=== PATIENT | female | born 1945 | race Caucasian/White ===

== ENCOUNTER 2020-04-02 07:56 | Outpatient (REF) | payer MEDICARE, SELFPAY ==
--- NOTE | 2020-04-02 08:01 | MM_ITS ---
EXAMINATION: MM SCREENING DIGITAL BREAST TOMOSYNTHESIS, BILATERAL CLINICAL INFORMATION: Screening. Asymptomatic. The lifetime risk of breast cancer based on the Tyrer-Cuzick Model is 3%. COMPARISON: Mammography: 03/28/2019, 03/15/2018, 02/21/2017, 01/19/2016, 12/30/2014 TECHNIQUE: Digital breast tomosynthesis is performed in both the craniocaudal and mediolateral oblique views along with computer-aided detection (CAD). Synthesized 2D images are generated from the tomosynthesis. Additional left MLO view is provided. FINDINGS: There are scattered areas of fibroglandular density (ACR BI-RADS breast composition Category b). Parenchymal pattern is similar to prior studies. There is no interval mass or architectural abnormality or developing density. Parenchymal asymmetry central left breast in MLO view is similar to prior studies. There are no abnormal calcifications. The axilla and skin contours are unremarkable. MM/MM tomosynthesis screening BI IMPRESSION: No significant changes from prior studies. ASSESSMENT: BI-RADS 2: Benign RECOMMENDATION: Routine annual mammography screening. This patient's information was entered into a reminder system with a target due date for their next mammogram.
== END 2020-04-02 07:57 | disposition home or self-care (01) ==
LOC: HO.MAMMO 07:56
PROVIDERS: PCP Internal Medicine; Visit Provider Internal Medicine
DX: Z12.31 Encounter for screening mammogram for malignant neoplasm of breast (principal)
CPT/HCPCS: 77063; 77067

== ENCOUNTER 2020-04-12 10:24 | Outpatient (REF) | payer MEDICARE, SELFPAY ==
[2020-04-12 13:42] LABS: MANUAL DIFF FLAG NO
[2020-04-12 13:48] LABS: Basophils Percent Auto 0.8 % (0-2); Eosinophils Absolute Auto 0.1 X10*3/uL (0.0-0.4); Eosinophils Percent Auto 2.3 % (0-4); Hematocrit 40.9 % (37-47); Hemoglobin 13.9 g/dl (12.0-16.0); Imm Gran Abs Auto 0.01 X10*3/uL (0.00-0.03); Imm Gran Pct Auto 0.2 % (0.0-0.4); Lymphocytes Absolute Auto 1.3 X10*3/uL (1.2-4.9); Lymphocytes Percent Auto 25.2 % (20-40); Mean Corpuscular Hemoglobin 31.8 pg (27.0-33.0); Mean Corpuscular Volume 93.6 fL (80-98); Mean Platelet Volume 10.2 fL (9.4-12.3); Monocytes Absolute Auto 0.5 X10*3/uL (0.1-1.2); Monocytes Percent Auto 10.1 % (2-11); Neutrophils Absolute Auto 3.2 X10*3/uL (2.0-8.3); Neutrophils Percent Auto 61.4 % (45-73); Platelet Count 266 X10*3/uL (160-400); Red Blood Count 4.37 X10*6/uL (4.20-5.50); White Blood Count 5.2 X10*3/uL (4.8-10.8)
[2020-04-12 14:53] LABS: Alanine Aminotransferase 18 U/L (0-31); Albumin Level 4.4 g/dL (3.5-5.0); Alkaline Phosphatase 61 U/L (39-117); Anion Gap 13 (12-20); Aspartate Amino Transferase 17 U/L (5-31); Bilirubin Total 0.5 mg/dL (0.0-1.0); Blood Urea Nitrogen 16 mg/dL (9-16); Calcium 10.1 mg/dL (8.4-10.2); Carbon Dioxide 28 mmol/L (22-29); Chloride 106 mmol/L (96-108); Estimated Glomerular Filt Rate 53; Glucose Random 90 mg/dL (60-115); Potassium 4.9 mmol/l (3.3-5.1); Sodium 142 mmol/L (135-145); Total Protein 6.9 g/dL (6.5-8.0)
== END 2020-04-12 10:25 | disposition home or self-care (01) ==
LOC: HO.10HDL 10:24
PROVIDERS: Visit Provider Internal Medicine
DX: I12.9 Hypertensive chronic kidney disease with stage 1 through stage 4 chronic kidney disease, or unspecified chronic kidney disease (principal); N18.9 Chronic kidney disease, unspecified; E78.00 Pure hypercholesterolemia, unspecified; K21.9 Gastro-esophageal reflux disease without esophagitis
CPT/HCPCS: 36415; 80053; 85025

== ENCOUNTER 2020-06-20 10:16 | Emergency (ER) | payer MEDICARE, SELFPAY ==
--- NOTE | ~2020-06-20 | CT_ITS ---
CT head/brain wo con CLINICAL INFORMATION: Fall COMPARISON: No prior CT scan available for comparison. TECHNIQUE: Department standard protocol. This CT examination was performed using dose optimization techniques as appropriate, variously including the following: *Automated exposure control *Adjustment of mA and/or kV according to patient size (this includes techniques or standardized protocols for targeted exams where dose is matched to indication/reason for exam; i.e. extremities or head) *Use of iterative reconstruction technique DLP: 598 mGy-cm FINDINGS: CEREBRAL HEMISPHERES: There is no evidence of intra-axial or extra-axial mass, hemorrhage or acute infarct. BRAIN PARENCHYMA: Normal vigil-white matter differentiation. SUBDURAL SPACE: No bleed. BASAL GANGLIA AND PINEAL GLAND: Unremarkable VENTRICLES: Symmetric and normal in size. CEREBELLUM AND BRAINSTEM: No space-occupying mass, hemorrhage or acute infarct. CEREBELLOPONTINE ANGLES: No lesion found. ORBITS: No intraorbital mass. VESSELS: Unremarkable SKULL BASE: Unremarkable INCLUDED SINUSES AT SKULL BASE: Clear SKULL AND SKIN: No fracture or bone lesion found. CT/CT head/brain wo con IMPRESSION: No CT evidence of intracranial space-occupying mass, bleed or infarct.
[2020-06-20 10:18] VITALS: BP 181/100; PULSE 82; RESP 16; TEMP 36.3; O2SAT 98; BMI 27.4
--- NOTE | 2020-06-20 10:24 | ED_ITS ---
HPI - Fall General Chief Complaint: Fall Stated Complaint: FALL HEAD INJ LACERATION Time Seen by Provider: 06/20/20 10:24 Source: patient Mode of arrival: ambulatory Limitations: no limitations History of Present Illness HPI Narrative: fell from stool putting up shower curtain hit head on door and scraped R anterior leg no LOC no AC therapy MD complaint: fall Onset (ago): minute(s) (just prior to arrival ) Fall from: standing (on stool) Fall witnessed: no Place fall occurred: home Loss of consciousness: none Prolonged down time: no Symptoms prior to fall: none Context: tripped/slipped Location of injury: head Location of injury - extremities: right: lower leg Severity: mild Quality: aching Associated symptoms (after fall): headache Related Data Allergies Allergy/AdvReac Type Severity Reaction Status Date / Time No Known Allergies Allergy Unverified 01/29/20 15:19 [No Known Allergies*] Review of Systems Review of Systems: Constitutional : No Fever, No Chills ENT/Mouth : No Ear Pain, No Hoarseness, No sore throat Eyes: No Eye Pain, No Swelling, No Redness, No Foreign Body Cardiovascular : No Chest Pain, No SOB Respiratory : No Cough, No Dyspnea Gastrointestinal : No Nausea, No Vomiting, No Diarrhea, No abdominal Pain Genitourinary : No Dysuria, No Hematuria Musculoskeletal : no joint pain, No Myalgias, No Joint Swelling Skin : pos Skin lacerations, No rash Neuro : No Weakness, No Numbness, No Loss of Consciousness, No Dizziness, pos Headache Psych : No Anxiety/Panic, No Depression Heme/Lymph: no easy bruising, no Lymphadenopathy Endocrine : No Polyuria, No Polydipsia All other systems reviewed and are negative FORMERLY [facility], [facility] Past Medical History Attestation statement: The following information was validated with the patient. Medical History No known health problems Social History Social History (Updated 06/20/20 @ 10:35 by Justina Garza DO) Smoking Status: Never smoker Advance Directives: No Advance Directives Information Provided: No Physical Exam Vital Signs: Vital Signs: Last Vital Signs Temp 97.3 F 06/20/20 10:18 Pulse 82 06/20/20 10:18 Resp 16 06/20/20 10:18 BP 181/100 H 06/20/20 10:18 Pulse Ox 98 06/20/20 10:18 Body Mass Index 27.4 Appearance: Alert. Oriented X3. No acute distress. Eyes: Pupils equal, round and reactive to light. ENT: Pharynx normal. Contusion to L forehead moderate Neck: Normal inspection. Neck supple. Full ROM no symptoms or pain CVS: Normal heart rate and rhythm. Pulses normal. Respiratory: No respiratory distress. Breath sounds normal. Abdomen: Soft and nontender. Skin: Skin warm and dry. Normal skin color. Normal skin turgor. Extremities: No lower extremity edema. No calf ttp Abrasion superficial R anterior acosta clean small avulsion 1cm Neuro: Oriented X 3. No motor deficit. No sensory deficit. Procedures Laceration Laceration 1: Site: lower extremity Side (If applicable): right Size (cm): 1 Description: flap and clean Depth: simple, single layer Pre-repair: wound explored Skin layer closed with: other (dermabond) MDM - Fall MDM Narrative Medical decision making narrative: 74 yo female no AC therapy slip and fall isolated head and R anterior acosta abrasion no LOC, GCS 15 c/o headache CT head for trauma ordered, RLE full ROM no limping - will dermabond area Discharge Plan Discharge Clinical Impression: Avulsion of skin Head injury Qualifiers: Encounter type: initial encounter Qualified Code(s): S09.90XA - Unspecified injury of head, initial encounter Contusion Qualifiers: Encounter type: initial encounter Contusion area: head Contusion of head detail: scalp Qualified Code(s): S00.03XA - Contusion of scalp, initial encounter Patient Disposition: Home, Self-Care Instructions: Head Injury (ED), Contusion in Adults (ED), Skin Avulsion (ED) Additional Instructions: return to ED for any worsening symptoms or concerns keep wound covered x 3 days it is okay to shower it will fall off in 5 to 7 days on its own
[2020-06-20 12:08] VITALS: BP 176/75; PULSE 88; RESP 16; TEMP 36.9; O2SAT 98
== END 2020-06-20 12:17 | disposition home or self-care (01) ==
PROVIDERS: Emergency Provider Emergency Medicine; PCP Internal Medicine
DX: S09.90XA Unspecified injury of head, initial encounter (principal); S00.03XA Contusion of scalp, initial encounter; S80.811A Abrasion, right lower leg, initial encounter; W17.89XA Other fall from one level to another, initial encounter; Y93.E9 Activity, other interior property and clothing maintenance; Y92.019 Unspecified place in single-family (private) house as the place of occurrence of the external cause; Y99.9 Unspecified external cause status
CPT/HCPCS: 12001; 70450; 99283; 99284

== ENCOUNTER 2020-07-12 07:41 | Outpatient (REF) | payer MEDICARE, SELFPAY ==
[2020-07-12 11:47] LABS: Anion Gap 14 (12-20); Blood Urea Nitrogen 18 mg/dL (9-16); Carbon Dioxide 27 mmol/L (22-29); Chloride 106 mmol/L (96-108); Estimated Glomerular Filt Rate 58; Glucose Random 88 mg/dL (60-115); Potassium 4.5 mmol/L (3.3-5.1); Sodium 142 mmol/L (135-145)
== END 2020-07-12 07:42 | disposition home or self-care (01) ==
LOC: HO.10HDL 07:41
PROVIDERS: Visit Provider Internal Medicine
DX: I10 Essential (primary) hypertension (principal)
CPT/HCPCS: 36415; 80048

== ENCOUNTER 2020-10-07 06:11 | Outpatient (REF) | payer MEDICARE, SELFPAY ==
[2020-10-07 07:02] LABS: MANUAL DIFF FLAG NO
[2020-10-07 07:04] LABS: Basophils Percent Auto 0.6 % (0-2); Eosinophils Absolute Auto 0.2 X10*3/uL (0.0-0.4); Eosinophils Percent Auto 2.8 % (0-4); Hematocrit 41.2 % (37-47); Hemoglobin 13.9 g/dl (12.0-16.0); Imm Gran Abs Auto 0.01 X10*3/uL (0.00-0.03); Imm Gran Pct Auto 0.2 % (0.0-0.4); Lymphocytes Absolute Auto 1.6 X10*3/uL (1.2-4.9); Lymphocytes Percent Auto 28.8 % (20-40); Mean Corpuscular HGB Conc 33.7 g/dl (31.0-35.0); Mean Corpuscular Hemoglobin 31.2 pg (27.0-33.0); Mean Corpuscular Volume 92.6 fL (80-98); Mean Platelet Volume 9.8 fL (9.4-12.3); Monocytes Absolute Auto 0.5 X10*3/uL (0.1-1.2); Monocytes Percent Auto 9.6 % (2-11); Neutrophils Absolute Auto 3.1 X10*3/uL (2.0-8.3); Platelet Count 221 X10*3/uL (160-400); Red Blood Count 4.45 X10*6/uL (4.20-5.50); Red Cell Distribution Width 11.9 % (11.0-16.0); White Blood Count 5.4 X10*3/uL (4.8-10.8)
[2020-10-07 07:47] LABS: Alanine Aminotransferase 17 U/L (0-31); Albumin Level 4.3 g/dL (3.5-5.0); Alkaline Phosphatase 62 U/L (39-117); Anion Gap 13 (12-20); Aspartate Amino Transferase 14 U/L (5-31); Bilirubin Total 0.7 mg/dL (0.0-1.0); Blood Urea Nitrogen 15 mg/dL (9-16); Calcium 9.9 mg/dL (8.4-10.2); Carbon Dioxide 28 mmol/L (22-29); Chloride 106 mmol/L (96-108); Cholesterol 161 mg/dL; Estimated Glomerular Filt Rate 54; Glucose Fasting 91 mg/dL (60-99); HDL Cholesterol 53 mg/dL; LDL Cholesterol Calculated 86 mg/dl; Potassium 4.6 mmol/L (3.3-5.1); Sodium 142 mmol/L (135-145); Total Protein 6.6 g/dL (6.5-8.0); Triglycerides 112 mg/dL
[2020-10-07 07:59] LABS: Vitamin D 25-OH Total 41.6 ng/mL (>30)
== END 2020-10-07 06:12 | disposition home or self-care (01) ==
LOC: HO.LAB 06:11
PROVIDERS: PCP Internal Medicine; Visit Provider Internal Medicine
DX: E78.00 Pure hypercholesterolemia, unspecified (principal); K21.9 Gastro-esophageal reflux disease without esophagitis; E55.9 Vitamin D deficiency, unspecified
CPT/HCPCS: 36415; 80053; 80061; 82306; 85025

== ENCOUNTER 2021-01-12 10:00 | Outpatient (REF) | payer MEDICARE, SELFPAY ==
--- NOTE | ~2021-01-12 | US_ITS ---
EXAMINATION: US RETROPERITONEAL LIMITED (RENAL ONLY) CLINICAL INFORMATION: Complex renal cyst. COMPARISON: Ultrasound renals only 11/13/2019 and 11/11/2018. TECHNIQUE: Real-time imaging of the kidneys. FINDINGS: RIGHT KIDNEY: 9.7 x 4.3 x 5.0 cm (SAG x AP x TRV). The kidney is normal in size, contour, and echogenicity. Renal cortical thickness is normal. There is a 3 mm stone in the upper pole. No focal parenchymal lesions or hydronephrosis. LEFT KIDNEY: 11.1 x 3.6 x 4.3 cm (SAG x AP x TRV). The kidney is normal in size, contour, and echogenicity. Renal cortical thickness is normal. There is a 2.8 x 2 x 2.5 cm slightly complex cyst with single septation in the upper pole. This is slightly increased in size from 2.3 x 1.7 x 2.1 cm on current exam. There is a 1.4 x 1.4 x 1.2 cm slightly complex cyst with septation in the upper pole. This is slightly increased in size from 1.1 x 0.8 x 1 cm on previous exam. There is a 3 mm stone in the upper pole. No renal hydronephrosis. US/US renal BI IMPRESSION: Probable small bilateral renal stones. 2 left minimally complex left renal cysts. These are increased in size from previous exam.
== END 2021-01-12 10:01 | disposition home or self-care (01) ==
LOC: HO.US 10:00
PROVIDERS: PCP Internal Medicine; Visit Provider Urology
DX: N28.1 Cyst of kidney, acquired (principal)
CPT/HCPCS: 76775

== ENCOUNTER 2021-01-13 06:35 | Outpatient (REF) | payer MEDICARE, SELFPAY ==
[2021-01-13 07:15] LABS: Anion Gap 11 (12-20); Blood Urea Nitrogen 17 mg/dL (9-16); Calcium 10.3 mg/dL (8.4-10.2); Carbon Dioxide 28 mmol/L (22-29); Chloride 107 mmol/L (96-108); Estimated Glomerular Filt Rate 54; Glucose Random 91 mg/dL (60-115); Potassium 4.3 mmol/L (3.3-5.1); Sodium 142 mmol/L (135-145)
== END 2021-01-13 06:36 | disposition home or self-care (01) ==
LOC: HO.LAB 06:35
PROVIDERS: PCP Internal Medicine; Visit Provider Internal Medicine
DX: I12.9 Hypertensive chronic kidney disease with stage 1 through stage 4 chronic kidney disease, or unspecified chronic kidney disease (principal); N18.9 Chronic kidney disease, unspecified
CPT/HCPCS: 36415; 80048

== ENCOUNTER → 2021-01-27 08:43 | Outpatient (BNVA) | payer MEDICARE, SELFPAY | PROVIDERS: PCP Internal Medicine; Visit Provider Urology | CPT/HCPCS: Q3014 ==

== ENCOUNTER 2021-04-08 07:52 | Outpatient (REF) | payer MEDICARE, SELFPAY ==
--- NOTE | ~2021-04-08 | MM_ITS ---
EXAMINATION: MM SCREENING DIGITAL BREAST TOMOSYNTHESIS, BILATERAL CLINICAL INFORMATION: Screening. Asymptomatic. The lifetime risk of breast cancer based on the Tyrer-Cuzick Model is 2%. COMPARISON: Mammography: 04/02/2020, 03/28/2019, 03/15/2018 TECHNIQUE: Digital breast tomosynthesis is performed in both the craniocaudal and mediolateral oblique views along with computer-aided detection (CAD). Synthesized 2D images are generated from the tomosynthesis. FINDINGS: There are scattered areas of fibroglandular density (ACR BI-RADS breast composition Category b). There are no significant masses, abnormal calcifications, or other abnormalities. Parenchymal pattern is similar to prior studies. No developing density. No significant changes. MM/MM tomosynthesis screening BI IMPRESSION: No mammographic evidence of malignancy. ASSESSMENT: BI-RADS 2: Benign RECOMMENDATION: Routine annual mammography screening. This patient's information was entered into a reminder system with a target due date for their next mammogram.
== END 2021-04-08 07:53 | disposition home or self-care (01) ==
LOC: HO.MAMMO 07:52
PROVIDERS: Visit Provider Internal Medicine
DX: Z12.31 Encounter for screening mammogram for malignant neoplasm of breast (principal)
CPT/HCPCS: 77063; 77067

== ENCOUNTER 2021-06-07 08:26 | Outpatient (REF) | payer MEDICARE, SELFPAY ==
--- NOTE | ~2021-06-07 | MM_ITS ---
EXAMINATION: BONE DENSITOMETRY CLINICAL INDICATION: Menopausal. COMPARISON: Previous BD dated 04/10/2017 and baseline BD dated 07/16/2007. TECHNIQUE: Using a [employer] DXA System (software version: 13.1) manufactured by [employer], dual-energy x-ray absorptiometry was performed of the lumbar spine and left hip. The images are of good technical quality. Summary results are attached. FINDINGS: AP SPINE L1-L4: Current: BMD 1.155 g/cm2, Z-score 1.4, T-score -0.2, normal, 1.8% decrease from previous, 10.6% increase from baseline (<5% change is not significant). Prior: BMD 1.176 g/cm2. Baseline: BMD 1.044 g/cm2. LEFT FEMUR, NECK: Current: BMD 0.811 g/cm2, Z-score 0.2, T-score -1.6, osteopenia. Prior: BMD 0.863 g/cm2. Baseline: BMD 0.807 g/cm2. LEFT FEMUR, TOTAL: Current: BMD 0.820 g/cm2, Z-score 0.1, T-score -1.5, osteopenia, 4.7% decrease from previous, 5.6% decrease from baseline (<5% change is not significant). Prior: BMD 0.860 g/cm2. Baseline: BMD 0.869 g/cm2. IDENTIFIED RISK FACTORS: Early menopause, secondary osteoporosis. HISTORY OF FRACTURE: None listed. MEDICATIONS: Calcium, vitamin D. MM/XR DEXA axial skeleton IMPRESSION: 1. DIAGNOSIS: Osteopenia based on the lowest T-score value of -1.6 in the femoral neck applying World Health Organization criteria. 2. 10-YEAR FRACTURE RISK PREDICTION, FRAX: Major osteoporotic fracture (clinical spine, forearm, hip or shoulder) 11.5%. Hip fracture 2.4%. 3. Treatment Recommendations: NOF guidelines recommend consideration for treatment in postmenopausal women and men age 50 and older presenting with the following: -A hip or vertebral (clinical or morphometric) fracture. -T-score less than or equal to -2.5 at the femoral neck or spine after appropriate evaluation to exclude secondary causes. -Low bone mass at the hip or spine and a 10-year fracture probability by FRAX of greater than or equal to 3% for hip fracture or greater than or equal to 20% for major osteoporotic fracture based on the [place] adapted WHO algorithm. 4. Other Recommendations: All treatment decisions require clinical judgment and consideration of individual patient factors, including patient preferences, comorbidities, previous drug use, risk factors not captured in the FRAX model (e.g. frailty, falls, vitamin D deficiency, increased bone turnover, interval significant decline in bone density) and possible under or overestimation of fracture risk by FRAX. Additional medical evaluation for secondary cause of low bone mineral density may be appropriate. FUTURE SCAN RECOMMENDATION: People with diagnosed cases of osteoporosis or at high risk for fracture should have regular bone mineral density tests. For patients eligible for Medicare, routine testing is allowed once every 2 years. The testing frequency can be increased to one year for patients who have rapidly progressing disease, those who are receiving or discontinuing medical therapy to restore bone mass, or have additional risk factors.
== END 2021-06-07 08:27 | disposition home or self-care (01) ==
LOC: HO.MAMMO 08:26
PROVIDERS: PCP Internal Medicine; Visit Provider Internal Medicine
DX: Z13.820 Encounter for screening for osteoporosis (principal); Z78.0 Asymptomatic menopausal state; M85.80 Other specified disorders of bone density and structure, unspecified site; Z79.899 Other long term (current) drug therapy
CPT/HCPCS: 77080

== ENCOUNTER 2021-11-24 06:11 | Outpatient (REF) | payer MEDICARE, SELFPAY ==
[2021-11-24 06:16] LABS: MANUAL DIFF FLAG NO
[2021-11-24 08:26] LABS: Basophils Percent Auto 0.6 % (0-2); Eosinophils Absolute Auto 0.2 X10*3/uL (0.0-0.4); Imm Gran Abs Auto 0.02 X10*3/uL (0.00-0.03); Imm Gran Pct Auto 0.3 % (0.0-0.4); Mean Corpuscular HGB Conc 33.3 g/dl (31.0-35.0); Mean Corpuscular Volume 93.1 fL (80.0-98.0); Mean Platelet Volume 10.2 fL (9.4-12.3); Monocytes Absolute Auto 0.6 X10*3/uL (0.1-1.2); Monocytes Percent Auto 8.7 % (2-11); Neutrophils Absolute Auto 3.5 x10*3/uL (2.0-8.3); Neutrophils Percent Auto 56.4 % (45-73); Platelet Count 245 X10*3/uL (160-400); Red Blood Count 4.51 X10*6/uL (4.20-5.50); Red Cell Distribution Width 12.4 % (11.0-16.0); White Blood Count 6.3 X10*3/uL (4.8-10.8)
[2021-11-24 08:58] LABS: Alanine Aminotransferase 19 U/L (0-31); Albumin Level 4.5 g/dL (3.5-5.0); Alkaline Phosphatase 67 U/L (39-117); Anion Gap 14 (12-20); Aspartate Amino Transferase 14 U/L (5-31); Bilirubin Total 0.8 mg/dL (0.0-1.0); Blood Urea Nitrogen 16 mg/dL (9-16); Carbon Dioxide 26 mmol/L (22-29); Chloride 107 mmol/L (96-108); Cholesterol 177 mg/dL; Estimated Glomerular Filt Rate 51; Glucose Fasting 90 mg/dL (60-99); HDL Cholesterol 53 mg/dL; LDL Cholesterol Calculated 103 mg/dl; Potassium 4.6 mmol/L (3.3-5.1); Sodium 142 mmol/L (135-145); Triglycerides 106 mg/dL
[2021-11-24 09:05] LABS: Vitamin D 25-OH Total 53.3 ng/mL (>30)
[2021-11-24 09:20] LABS: Appearance Urine CLEAR; Color Urine YELLOW; Glucose Urine UA NEG (NEG); Leukocyte Esterase Urine TRACE (NEG); Nitrite Urine NEG (NEG); Specific Gravity - Urine 1.015 (1.005-1.025); Urine Blood NEG (NEG); Urine Ketones NEG (NEG); Urine Protein NEG (NEG-TRACE)
[2021-11-24 09:30] LABS: Squamous Epithelial Cell Urine 1+ /LPF
[2021-11-24 09:31] LABS: RBC Urine 0-2 /HPF (0); Renal Epithelial Cells Urine TRACE /LPF; WBC Urine 0-2 /HPF (0-4)
== END 2021-11-24 06:12 | disposition home or self-care (01) ==
LOC: HO.LAB 06:11
PROVIDERS: PCP Internal Medicine; Visit Provider Internal Medicine
DX: I12.9 Hypertensive chronic kidney disease with stage 1 through stage 4 chronic kidney disease, or unspecified chronic kidney disease (principal); N18.30 Chronic kidney disease, stage 3 unspecified; J44.9 Chronic obstructive pulmonary disease, unspecified; K21.9 Gastro-esophageal reflux disease without esophagitis; M85.89 Other specified disorders of bone density and structure, multiple sites; Z87.891 Personal history of nicotine dependence
CPT/HCPCS: 36415; 80053; 80061; 81001; 81003; 82306; 85025

== ENCOUNTER 2022-01-30 08:31 | Outpatient (REF) | payer MEDICARE, SELFPAY ==
--- NOTE | ~2022-01-30 | US_ITS ---
EXAMINATION: US RETROPERITONEAL LIMITED (RENAL ONLY) CLINICAL INFORMATION: Calculus of kidney. COMPARISON: Ultrasound retroperitoneal limited (renal only) 01/12/2021 and 11/13/2019. TECHNIQUE: Real-time imaging of the kidneys. FINDINGS: RIGHT KIDNEY: 9.3 x 5.1 x 4.9 cm (SAG x AP x TRV). The kidney is normal in size, contour, and echogenicity. Renal cortical thickness is normal. No renal calculi or hydronephrosis. There is anechoic cyst upper pole measuring 1.1 x 0.9 x 0.8 cm. It is new. Previously seen upper pole echogenic calculi is not visualized at this time. LEFT KIDNEY: 8.9 x 4.4 x 4.2 cm (SAG x AP x TRV). The kidney is normal in size, contour, and echogenicity. Renal cortical thickness is normal. No renal calculi or hydronephrosis. There is anechoic cyst in the upper/pole medially measuring 2.7 x 1.9 x 2.1 cm and 2 anechoic cysts in the upper pole laterally measuring 1.5 x 1.1 x 1.4 cm and 1.3 x 1.3 x 1.7 cm. US/US renal BI IMPRESSION: Bilateral renal cysts. No echogenic stones or hydronephrosis seen.. Echogenic stones were seen bilaterally on the previous exam 01/12/2021
== END 2022-01-30 08:32 | disposition home or self-care (01) ==
LOC: HO.US 08:31
PROVIDERS: Visit Provider Urology
DX: N20.0 Calculus of kidney (principal); N28.1 Cyst of kidney, acquired
CPT/HCPCS: 76775

== ENCOUNTER 2022-02-14 07:26 | Outpatient (REF) | payer MEDICARE, SELFPAY ==
[2022-02-14 11:41] LABS: Anion Gap 17 (12-20); Blood Urea Nitrogen 16 mg/dL (9-16); Carbon Dioxide 24 mmol/L (22-29); Chloride 107 mmol/L (96-108); Estimated Glomerular Filt Rate 45; Glucose Random 121 mg/dL (60-115); Potassium 4.4 mmol/L (3.3-5.1); Sodium 144 mmol/L (135-145)
== END 2022-02-14 07:27 | disposition home or self-care (01) ==
LOC: HO.LAB 07:26
PROVIDERS: PCP Internal Medicine; Visit Provider Internal Medicine
DX: I12.9 Hypertensive chronic kidney disease with stage 1 through stage 4 chronic kidney disease, or unspecified chronic kidney disease (principal); N18.9 Chronic kidney disease, unspecified
CPT/HCPCS: 36415; 80048

== ENCOUNTER → 2022-03-23 13:13 | Outpatient (BNVA) | payer MEDICARE, SELFPAY | PROVIDERS: PCP Internal Medicine; Visit Provider Urology | DX: N28.1 Cyst of kidney, acquired (principal) | CPT/HCPCS: 99212 ==

== ENCOUNTER 2022-04-10 07:55 | Outpatient (REF) | payer MEDICARE, SELFPAY ==
--- NOTE | ~2022-04-10 | MM_ITS ---
EXAMINATION: MM SCREENING DIGITAL BREAST TOMOSYNTHESIS, BILATERAL CLINICAL INFORMATION: Screening. Asymptomatic. The lifetime risk of breast cancer based on the Tyrer-Cuzick Model is 1%. COMPARISON: Mammography: 04/08/2021, 04/02/2020, 03/28/2019 TECHNIQUE: Digital breast tomosynthesis is performed in both the craniocaudal and mediolateral oblique views along with computer-aided detection (CAD). Synthesized 2D images are generated from the tomosynthesis. FINDINGS: There are scattered areas of fibroglandular density (ACR BI-RADS breast composition Category b). There are no significant masses, abnormal calcifications, or other abnormalities. Parenchymal pattern is similar to prior studies. There is no developing density or architectural abnormality. The axilla and skin contours are unremarkable. No significant changes. MM/MM tomosynthesis screening BI IMPRESSION: No mammographic evidence of malignancy. ASSESSMENT: BI-RADS 1: Negative RECOMMENDATION: Routine annual mammography screening. This patient's information was entered into a reminder system with a target due date for their next mammogram.
== END 2022-04-10 07:56 | disposition home or self-care (01) ==
LOC: HO.MAMMO 07:55
PROVIDERS: Visit Provider Internal Medicine
DX: Z12.31 Encounter for screening mammogram for malignant neoplasm of breast (principal)
CPT/HCPCS: 77063; 77067

== ENCOUNTER 2022-04-20 10:43 | Outpatient (REF) | payer MEDICARE, SELFPAY ==
[2022-04-20 14:12] LABS: MANUAL DIFF FLAG NO
[2022-04-20 14:22] LABS: Appearance Urine Clear; Color Urine Yellow; Glucose Urine UA Negative (Negative); Leukocyte Esterase Urine Negative (Negative); Nitrite Urine Negative (Negative); PH 6.5 (5.0-9.0); Urine Blood Negative (Negative); Urine Ketones Negative (Negative); Urine Protein Negative (Neg-Trace)
[2022-04-20 14:34] LABS: Basophils Percent Auto 0.6 % (0-2); Eosinophils Absolute Auto 0.1 X10*3/uL (0.0-0.4); Eosinophils Percent Auto 2.2 % (0-4); Hematocrit 42.4 % (37.0-47.0); Hemoglobin 14.1 g/dl (12.0-16.0); Imm Gran Abs Auto 0.03 X10*3/uL (0.00-0.03); Imm Gran Pct Auto 0.5 % (0.0-0.4); Lymphocytes Absolute Auto 1.3 X10*3/uL (1.2-4.9); Lymphocytes Percent Auto 20.8 % (20-40); Mean Corpuscular HGB Conc 33.3 g/dl (31.0-35.0); Mean Corpuscular Hemoglobin 31.1 pg (27.0-33.0); Mean Corpuscular Volume 93.4 fL (80.0-98.0); Mean Platelet Volume 10.2 fL (9.4-12.3); Monocytes Absolute Auto 0.5 X10*3/uL (0.1-1.2); Monocytes Percent Auto 8.2 % (2-11); Neutrophils Absolute Auto 4.3 x10*3/uL (2.0-8.3); Neutrophils Percent Auto 67.7 % (45-73); Platelet Count 254 X10*3/uL (160-400); Red Blood Count 4.54 X10*6/uL (4.20-5.50); Red Cell Distribution Width 12.2 % (11.0-16.0); White Blood Count 6.4 X10*3/uL (4.8-10.8)
[2022-04-20 14:52] LABS: Alanine Aminotransferase 23 U/L (0-31); Albumin Level 4.7 g/dL (3.5-5.0); Alkaline Phosphatase 74 U/L (39-117); Anion Gap 14 (12-20); Aspartate Amino Transferase 18 U/L (5-31); Bilirubin Total 0.6 mg/dL (0.0-1.0); Blood Urea Nitrogen 14 mg/dL (9-16); C Reactive Protein 0.43 mg/dL (< or = 0.50); Calcium 10.7 mg/dL (8.4-10.2); Carbon Dioxide 27 mmol/L (22-29); Chloride 107 mmol/L (96-108); Estimated Glomerular Filt Rate 52; Glucose Random 88 mg/dL (60-115); Potassium 4.9 mmol/L (3.3-5.1); Sodium 143 mmol/L (135-145); Total Protein 7.2 g/dL (6.5-8.0)
== END 2022-04-20 10:44 | disposition home or self-care (01) ==
LOC: HO.10HDL 10:43
PROVIDERS: Visit Provider Internal Medicine
DX: R10.9 Unspecified abdominal pain (principal); K21.9 Gastro-esophageal reflux disease without esophagitis
CPT/HCPCS: 36415; 80053; 81003; 85025; 86140; 87086

== ENCOUNTER 2022-04-21 08:54 | Outpatient (REF) | payer MEDICARE, SELFPAY ==
--- NOTE | ~2022-04-21 | CT_ITS ---
EXAMINATION: CT ABDOMEN AND PELVIS WITHOUT CONTRAST CLINICAL INFORMATION: Abdominal pain and change in bowel habits. COMPARISON: Renal ultrasound 01/30/2022. TECHNIQUE: Multidetector volumetric imaging was performed from the superior aspect of the liver through the pubic symphysis. Sagittal and coronal reformatted images were obtained on the technologist's workstation. This CT examination was performed using dose optimization techniques as appropriate, variously including the following: *Automated exposure control *Adjustment of mA and/or kV according to patient size (this includes techniques or standardized protocols for targeted exams where dose is matched to indication/reason for exam; i.e. extremities or head) *Use of iterative reconstruction technique DLP: 410 mGy-cm FINDINGS: LUNG BASES: The visualized lung bases are unremarkable. Heart size is normal. Trace coronary artery calcifications are seen. LIVER, GALLBLADDER, AND BILIARY TREE: The liver is normal in size, shape, and attenuation. No focal hepatic lesion or biliary ductal dilatation is present. The gallbladder is contracted and appears unremarkable. PANCREAS: Unremarkable SPLEEN: Unremarkable ADRENAL GLANDS: There is a 7 mm right adrenal nodule and a 8 mm left adrenal nodule. KIDNEYS AND URETERS: The kidneys are normal in size, shape, and attenuation. There are several small radiopaque calculi mid pole of both kidneys. There is a 2.5 x 2.0 cm cyst upper pole left kidney. BLADDER: The bladder is nondistended. GASTROINTESTINAL TRACT: There is scattered stool and gas seen throughout the colon without distention. The small bowel loops are normal caliber. Appendix is normal caliber. ABDOMINAL WALL: No significant hernia is appreciated. LYMPH NODES: Normal VASCULAR: There is atherosclerotic calcification of abdominal aorta without aneurysmal dilatation. PELVIC VISCERA: The uterus is anteverted and appears unremarkable. No adnexal mass or free fluid seen. OSSEOUS STRUCTURES: There is mild levoscoliosis of the dorsolumbar spine. Grade 1 anterolisthesis L4-L5 is noted. Mild degenerative disc changes L5-S1, L4-L5, L1-L2 and T12-L1 disc levels is noted. CT/CT abdomen pelvis wo IV con IMPRESSION: Mild constipation without obstruction or inflammatory process. Nonobstructive bilateral small radiopaque calculi and an upper pole left renal simple cyst. Fleischner guidelines were followed.
[2022-04-21] MEDS: Barium Sulfate Oral (Berry) 450 ML ORAL.SUSP 900 ML PO (11:46)
== END 2022-04-21 08:55 | disposition home or self-care (01) ==
LOC: HO.CT 08:54
PROVIDERS: PCP Internal Medicine; Visit Provider Internal Medicine
DX: R10.0 Acute abdomen (principal)
CPT/HCPCS: 74176

== ENCOUNTER 2022-04-25 08:49 | Outpatient (REF) | payer MEDICARE, SELFPAY ==
[2022-04-25 14:38] LABS: Appearance Urine Clear; Color Urine Yellow; Glucose Urine UA Negative (Negative); Leukocyte Esterase Urine Negative (Negative); Nitrite Urine Negative (Negative); Specific Gravity - Urine <= 1.005 (1.005-1.025); Urine Blood Negative (Negative); Urine Ketones Negative (Negative); Urine Protein Negative (Neg-Trace)
== END 2022-04-25 08:50 | disposition home or self-care (01) ==
LOC: HO.10HDL 08:49
PROVIDERS: Visit Provider Internal Medicine
DX: R30.0 Dysuria (principal)
CPT/HCPCS: 81003; 87086

== ENCOUNTER 2022-05-30 08:26 | Outpatient (REF) | payer MEDICARE, SELFPAY ==
[2022-05-30 10:50] LABS: Anion Gap 12 (12-20); Blood Urea Nitrogen 14 mg/dL (9-16); Calcium 9.8 mg/dL (8.4-10.2); Carbon Dioxide 26 mmol/L (22-29); Chloride 107 mmol/L (96-108); Estimated Glomerular Filt Rate 47; Glucose Random 108 mg/dL (60-115); Sodium 141 mmol/L (135-145)
[2022-05-30 11:23] LABS: Estimated Average Glucose 105 mg/dL; Hemoglobin A1c % 5.3 %
== END 2022-05-30 08:27 | disposition home or self-care (01) ==
LOC: HO.10HDL 08:26
PROVIDERS: Visit Provider Internal Medicine
DX: I12.9 Hypertensive chronic kidney disease with stage 1 through stage 4 chronic kidney disease, or unspecified chronic kidney disease (principal); N18.9 Chronic kidney disease, unspecified; R73.03 Prediabetes
CPT/HCPCS: 36415; 80048; 83036

== ENCOUNTER 2022-09-06 11:36 | Outpatient (REF) | payer MEDICARE, SELFPAY ==
[2022-09-06 13:58] LABS: Alanine Aminotransferase 17 U/L (0-31); Albumin Level 4.5 g/dL (3.5-5.0); Alkaline Phosphatase 78 U/L (39-117); Anion Gap 12 (12-20); Aspartate Amino Transferase 14 U/L (5-31); Bilirubin Total 0.6 mg/dL (0.0-1.0); Blood Urea Nitrogen 15 mg/dL (9-16); Calcium 10.3 mg/dL (8.4-10.2); Carbon Dioxide 27 mmol/L (22-29); Chloride 108 mmol/L (96-108); Estimated Glomerular Filt Rate 58; Glucose Random 91 mg/dL (60-115); Potassium 4.8 mmol/L (3.3-5.1); Sodium 142 mmol/L (135-145); Total Protein 6.8 g/dL (6.5-8.0)
[2022-09-08 14:08] LABS: Calcium (PTHI) 10.4 mg/dL (8.6-10.4); PTHI 61 pg/mL (16-77)
== END 2022-09-06 11:37 | disposition home or self-care (01) ==
LOC: HO.10HDL 11:36
PROVIDERS: Visit Provider Internal Medicine
DX: K21.9 Gastro-esophageal reflux disease without esophagitis (principal); N18.9 Chronic kidney disease, unspecified; J44.9 Chronic obstructive pulmonary disease, unspecified; M81.0 Age-related osteoporosis without current pathological fracture
CPT/HCPCS: 36415; 80053; 83970

== ENCOUNTER → 2022-10-12 06:24 | Day surgery (SDC) | payer MEDICARE, SELFPAY ==
--- NOTE | 2022-10-11 08:29 | P.CONAN_ITS ---
Documented by User: Chantale Burgess NP 10/11/22 08:29 HPI - Anesthesia Eval Consult details Narrative: 76yo F for Colonoscopy PMFSH Active Problems Active Problems: All Active Problems (Updated 10/11/22 @ 07:46 by Geri Vasques RN) Kidney cysts (Acute) Past Medical History Medical History Anxiety Cataracts, bilateral Facial basal cell cancer GERD (gastroesophageal reflux disease) History of skin cancer HTN (hypertension) Hyperlipidemia Renal cyst, acquired Renal stones Surgical History Surgical History H/O lithotripsy H/O tubal ligation History of biopsy History of cataract surgery Status post Mohs surgery Social History Social History Patient Tobacco Use Status: Former Tobacco user Tobacco use type: Cigarette Cigarette Packs Per Day: 1.5 Cigarettes Per Day: 30.0 Years Smoked: 35 Smoked in Last 30 Days: No Use of substances other than those prescribed or required for medical reasons: No Are you DNR?: No Advance Directives: No Advance Directives Information Provided: Yes Meds Allergies Allergy/AdvReac Type Severity Reaction Status Date / Time latex Allergy SKIN Verified 10/12/22 06:36 ITTIRATION/REDNESS Home Medications Medication Instructions Recorded Confirmed Last Taken Type atorvastatin 10 mg tablet 10 mg PO DAILY 01/27/21 10/12/22 Unknown History lorazepam 0.5 mg tablet 0.5 mg PO DAILY PRN Anxiety 01/27/21 10/12/22 Unknown History amlodipine 2.5 mg tablet 2.5 mg PO DAILY 03/20/22 10/12/22 10/12/22 05:15 History omeprazole 20 mg capsule,delayed 20 mg PO DAILY 03/20/22 10/12/22 Unknown History release Exam Exam Date and Time: October 11, [id number] Assessment and Plan Assessment Anesthesia Assessment: Chart Reviewed Documented by User: Luly Valdes MD 10/12/22 07:29 [facility] Past Medical History Medical History Anxiety Cataracts, bilateral Facial basal cell cancer GERD (gastroesophageal reflux disease) History of skin cancer HTN (hypertension) Hyperlipidemia Renal cyst, acquired Renal stones Surgical History Surgical History H/O lithotripsy H/O tubal ligation History of biopsy History of cataract surgery Status post Mohs surgery History of Problems with Anesthesia: No Social History Social History Patient Tobacco Use Status: Former Tobacco user Tobacco use type: Cigarette Cigarette Packs Per Day: 1.5 Cigarettes Per Day: 30.0 Years Smoked: 35 Smoked in Last 30 Days: No Use of substances other than those prescribed or required for medical reasons: No Are you DNR?: No Advance Directives: No Advance Directives Information Provided: Yes Meds Allergies Allergy/AdvReac Type Severity Reaction Status Date / Time latex Allergy SKIN Verified 10/12/22 06:36 ITTIRATION/REDNESS Home Medications Medication Instructions Recorded Confirmed Last Taken Type atorvastatin 10 mg tablet 10 mg PO DAILY 01/27/21 10/12/22 Unknown History lorazepam 0.5 mg tablet 0.5 mg PO DAILY PRN Anxiety 01/27/21 10/12/22 Unknown History amlodipine 2.5 mg tablet 2.5 mg PO DAILY 03/20/22 10/12/22 10/12/22 05:15 History omeprazole 20 mg capsule,delayed 20 mg PO DAILY 03/20/22 10/12/22 Unknown History release Exam Airway Mallampati Class: II (edentulous) TM Dist: >3cm Neck ROM: Full Loose/Missing/Broken Teeth: Yes, Upper and Lower Heart: RRR Lungs: CTA Assessment and Plan Assessment Anesthesia Assessment: Anesthesia Plan Discussed Final Anesthetic Review History of Problems with Anesthesia: No NPO: Yes ASA Class: II Final Preanesthetic Review: Meds/Allgs Chart Reviewed, Consent Obtained/Reviewed and Anes Risks/Benef Reviewed Patient Risk: Low Procedure Risk: Low Anesthetic Plan Anesthetic Plan: MAC: Disposition: Standard PACU
--- NOTE | ~2022-10-12 | XR_ITS ---
EXAMINATION: XR CHEST CLINICAL INFORMATION: Possible aspiration. COMPARISON: 09/06/2016 chest radiographs. TECHNIQUE: Frontal view of the chest was obtained. FINDINGS: No significant abnormality is noted involving the heart, lungs, mediastinum, bony thorax or soft tissues. XR/XR chest 1V IMPRESSION: No acute cardiopulmonary process.
[2022-10-12 06:37] VITALS: BP 152/62; PULSE 79; RESP 16; TEMP 36.4; O2SAT 97; BMI 28.0
[2022-10-12] MEDS: Lactated Ringers 1,000 ML 100 ML IVCONT (06:55)
--- NOTE | 2022-10-12 08:31 | P.BOP_ITS ---
Brief Operative Note Date of Service: 10/12/22 Pre-op diagnosis: + Cologuard Post-op diagnosis: other (Cecal polyps) Procedure: Colonoscopy to the cecum with hot snare polypectomies x 2 in cecum with placement of 3 Resolution clips Surgeon: Ran Maldonado Anesthesia: MAC Was an Long Term Care Phlebotomist used for this Procedure?: No Estimated blood loss (mL): 2.0 Pathology: other (A. Cecal polyps) Condition: stable Disposition: PACU
[2022-10-12 08:39] VITALS: BP 120/68; PULSE 77; RESP 16; TEMP 36.1; O2SAT 97
--- NOTE | 2022-10-12 08:53 | OP_ITS ---
DATE OF SERVICE: 10/12/2022 SURGEON: Ran Maldonado MD INDICATIONS: The patient presents for evaluation of a positive Cologuard test. Full consent obtained from her for this, including risks of bleeding and perforation. PREOPERATIVE DIAGNOSIS: Positive Cologuard. POSTOPERATIVE DIAGNOSIS: PROCEDURE PERFORMED: Colonoscopy to the cecum with hot snare polypectomy x 2 in cecum and placement of 3 Resolution clips on one of the polypectomy sites. ESTIMATED BLOOD LOSS: COMPLICATIONS: ANESTHESIA: Monitored anesthesia care. ASSISTANTS: SPECIMENS: POSTOPERATIVE DIAGNOSES: Positive Cologuard, cecal polyps, diverticulosis and internal hemorrhoids. DESCRIPTION OF PROCEDURE: The patient was placed in the left lateral decubitus position. The digital rectal exam revealed no abnormalities. The [employer] video pediatric colonoscope was entered into the rectum, advanced easily to the cecum. Once in the cecum, I did identify cecal pouch with appendiceal orifice and a normal-appearing ileocecal valve. There was transillumination of light deep in the right lower quadrant. The entire cecum was well visualized. In the cecum was an approximately 12 mm polyp on a fold, which was removed by hot snare polypectomy and recovered by suction. The polypectomy site appeared clean, without any sign of residual polyp nor bleeding. Also in the cecum, adjacent to the area of the appendiceal orifice but not involving the appendiceal orifice, was a flat but raised lobulated polypoid lesion measuring approximately 2.5 cm in diameter. This was removed in piecemeal fashion with multiple pieces recovered for pathology. Other areas were cauterized for hemostasis. Post-polypectomy, there did not appear to be any definitive residual polyp tissue and there was no active bleeding. I did place 3 Resolution clips on the polypectomy site with good deployment and good hemostasis. The area was irrigated and observed for at least 5 or 10 minutes and there was no sign of any active bleeding. The scope was then slowly withdrawn, assessing all mucosal surfaces carefully. Preparation was excellent. I did not visualize any other polyps, colitis, nor angiodysplasia. There was a moderate amount of sigmoid diverticulosis. In the rectum, scope was retroflexed visualizing internal hemorrhoids, but no other pathology. The rectal mucosa appeared normal. The scope was straightened and withdrawn from the patient. She tolerated the procedure well and was returned to the recovery area in stable condition. IMPRESSION: 1. Colon polyps. 2. Diverticulosis. 3. Internal hemorrhoids. PLAN: The results of the pathology will be checked. She was advised not to use any aspirin and NSAIDs for 2 weeks. Given the appearance of the larger polyp, I would recommend a repeat colonoscopy in 1 year for followup. She will otherwise see me on a p.r.n. basis. This has been discussed with her . MD KAROLINE Bey/HUGO / [id number] MTDAndreia
[2022-10-12 08:56] VITALS: BP 139/71; PULSE 66; RESP 17; TEMP 36.1; O2SAT 94
[2022-10-12 09:13] VITALS: BP 136/54; PULSE 72; RESP 20; O2SAT 90
[2022-10-12] MEDS: ondansetron HCL 4 MG/2 ML VIAL IVPUSH (09:17)
[2022-10-12 09:33] VITALS: BP 148/74; PULSE 69; RESP 18; TEMP 36.2; O2SAT 91
== END | disposition home or self-care (01) ==
PROVIDERS: PCP Internal Medicine; Visit Provider Internal Medicine
PROC: 0DJD8ZZ Inspection of Lower Intestinal Tract, Via Natural or Artificial Opening Endoscopic (ICD-10-PCS; CPT 45378; principal; 2022-10-12 07:30)
DX: R19.5 Other fecal abnormalities (principal); D12.0 Benign neoplasm of cecum; K57.30 Diverticulosis of large intestine without perforation or abscess without bleeding; K64.8 Other hemorrhoids; K21.9 Gastro-esophageal reflux disease without esophagitis; I10 Essential (primary) hypertension; E78.5 Hyperlipidemia, unspecified; Z79.899 Other long term (current) drug therapy; Z87.442 Personal history of urinary calculi; Z85.828 Personal history of other malignant neoplasm of skin; Z87.891 Personal history of nicotine dependence
CPT/HCPCS: 45385; 71045; 88305; J2405

== ENCOUNTER 2022-10-12 09:47 | Emergency (ER) | payer MEDICARE, SELFPAY ==
--- NOTE | ~2022-10-12 | XR_ITS ---
EXAMINATION: XR CHEST CLINICAL INFORMATION: Aspiration. COMPARISON: Chest radiograph dated 10/12/2022 from earlier today and 09/06/2016. TECHNIQUE: 2 views of the chest were obtained. FINDINGS: The lungs are clear. There are no pleural effusions. The heart and mediastinal structures are unremarkable. XR/XR chest 2V IMPRESSION: No acute cardiopulmonary process.
[2022-10-12 09:53] VITALS: BP 151/68; PULSE 65; RESP 20; TEMP 36.5; O2SAT 97; BMI 28.0
[2022-10-12 11:00] LABS: MANUAL DIFF FLAG NO
[2022-10-12 11:06] LABS: Basophils Absolute Auto 0.1 X10*3/uL (0.0-0.2); Basophils Percent Auto 0.6 % (0-2); Eosinophils Percent Auto 0.5 % (0-4); Hematocrit 42.4 % (37.0-47.0); Hemoglobin 14.1 g/dl (12.0-16.0); Imm Gran Abs Auto 0.04 X10*3/uL (0.00-0.03); Imm Gran Pct Auto 0.5 % (0.0-0.4); Lymphocytes Absolute Auto 0.9 X10*3/uL (1.2-4.9); Lymphocytes Percent Auto 10.1 % (20-40); Mean Corpuscular HGB Conc 33.3 g/dl (31.0-35.0); Mean Corpuscular Hemoglobin 31.1 pg (27.0-33.0); Mean Corpuscular Volume 93.4 fL (80.0-98.0); Mean Platelet Volume 9.7 fL (9.4-12.3); Monocytes Absolute Auto 0.6 X10*3/uL (0.1-1.2); Monocytes Percent Auto 6.5 % (2-11); Neutrophils Absolute Auto 7.2 x10*3/uL (2.0-8.3); Neutrophils Percent Auto 81.8 % (45-73); Platelet Count 237 X10*3/uL (160-400); Red Blood Count 4.54 X10*6/uL (4.20-5.50); Red Cell Distribution Width 12.2 % (11.0-16.0); White Blood Count 8.8 X10*3/uL (4.8-10.8)
[2022-10-12 11:23] LABS: Alanine Aminotransferase 18 U/L (0-31); Albumin Level 4.4 g/dL (3.5-5.0); Alkaline Phosphatase 71 U/L (39-117); Anion Gap 14 (12-20); Aspartate Amino Transferase 14 U/L (5-31); Bilirubin Direct 0.2 mg/dL (0.0-0.5); Bilirubin Total 0.6 mg/dL (0.0-1.0); Blood Urea Nitrogen 13 mg/dL (9-16); Calcium 10.4 mg/dL (8.4-10.2); Carbon Dioxide 25 mmol/L (22-29); Chloride 108 mmol/L (96-108); Creatinine Clr Calc Pharmacy 49.2; Estimated Glomerular Filt Rate > 60; Glucose Random 102 mg/dL (60-115); Magnesium 1.9 mg/dL (1.6-2.6); Potassium 4.6 mmol/L (3.3-5.1); Sodium 142 mmol/L (135-145); Total Protein 6.9 g/dL (6.5-8.0)
--- NOTE | 2022-10-12 11:36 | PC.NURSE ---
pt a&o x4, resting quietly on stretcher in no apparent distress with at bedside. pt placed on 3L n/c and sating 97-98%. denies chest pain or sob. reports 3/10 left flank pain. rr even/unlabored. vss. wctm
--- NOTE | 2022-10-12 11:41 | ED_ITS ---
HPI - General Adult General Chief complaint: General Medical Stated complaint: ? aspiration Time Seen by Provider: 10/12/22 11:41 Source: patient Mode of arrival: wheelchair Limitations: no limitations History of Present Illness HPI narrative: 76-year-old female presents to the ER from the PACU for evaluation of nausea, vomiting and possible aspiration. Her arm PACU nurse patient reportedly vomited multiple times during her colonoscopy. She has no recollection of this. She was given Zofran in the operating room and then another dose of Zofran in the PACU for ongoing vomiting. There was reports of ?junky? sounds in the left lower lung and concern for possible aspiration. She was satting 91% on room air. She was placed on supplemental oxygen and brought to the ER for further evaluation. Patient denies any shortness of breath, chest pain. She is no longer nauseous. She feels tired from the anesthesia. complaint: Vomiting, possible aspiration Onset (ago): hour(s) Location: chest Radiation: non-radiation Pain Consistency: now resolved Relieving factors: rest and other (Supplemental oxygen) Exacerbating factors: none Associated symptoms: denies other symptoms Treatments prior to arrival: none Related Data Home Medications Medication Instructions Recorded Confirmed atorvastatin 10 mg tablet 10 mg PO DAILY 01/27/21 10/12/22 lorazepam 0.5 mg tablet 0.5 mg PO DAILY PRN Anxiety 01/27/21 10/12/22 amlodipine 2.5 mg tablet 2.5 mg PO DAILY 03/20/22 10/12/22 omeprazole 20 mg capsule,delayed 20 mg PO DAILY 03/20/22 10/12/22 release Previous Rx's Medication Instructions Recorded amoxicillin 875 mg-potassium 1 tab PO BID #14 tabs 10/12/22 clavulanate 125 mg tablet Allergies Allergy/AdvReac Type Severity Reaction Status Date / Time latex Allergy SKIN Verified 10/12/22 06:36 ITTIRATION/REDNESS Review of Systems Review of Systems: Yes all other systems are reviewed and are negative PMFSH Past Medical History Medical History Anxiety Cataracts, bilateral Facial basal cell cancer GERD (gastroesophageal reflux disease) History of skin cancer HTN (hypertension) Hyperlipidemia Renal cyst, acquired Renal stones Surgical History H/O lithotripsy H/O tubal ligation History of biopsy History of cataract surgery Status post Mohs surgery Social History Social History Patient Tobacco Use Status: Former Tobacco user Tobacco use type: Cigarette Cigarette Packs Per Day: 1.5 Cigarettes Per Day: 30.0 Years Smoked: 35 Smoked in Last 30 Days: No Use of substances other than those prescribed or required for medical reasons: No Advance Directives: No Advance Directives Information Provided: Yes Physical Exam ED Vital Signs: Vital Signs - 24 hr 10/12/22 09:53 10/12/22 12:06 Temperature 97.7 F 98.0 F Pulse Rate 65 94 Respiratory Rate 20 16 Blood Pressure 151/68 H 143/84 H Pulse Oximetry 97 98 Oxygen Delivery Method Nasal Cannula Room Air BMI result Body Mass Index 28.0 Appearance: Alert. Oriented X3. No acute distress. Head: normocephalic, atraumatic. Eyes: Pupils equal, round and reactive to light. ENT: Pharynx normal. No tonsillar swelling or exudate. Neck: Normal inspection. Neck supple. CVS: Normal heart rate and rhythm. Pulses normal. Respiratory: No respiratory distress. Breath sounds normal. Abdomen: Soft and nontender. +BS x4 Skin: Skin warm and dry. Normal skin color. Normal skin turgor. No rashes. Extremities: No lower extremity edema. No joint swelling. Neuro/psych: Oriented X 3. Grossly normal, nonfocal CN II-XII intact. Normal speech and cognition. Course Reevaluation(s) Reevaluation #1: Patient's O2 has been weaned off and she has been saturating 95% on room air. He has no shortness of breath or chest pain. Chest x-ray is clear. Stable for discharge home with oral antibiotics. Time: 12:02 Medical Decision Making Medical Decision Making MDM Narrative: 76-year-old female presents to the ER for evaluation of nausea, vomiting, hypoxia with abnormal lung sounds after vomiting during colonoscopy today. Patient required 3 L of oxygen to bring her saturations up to the high 90s, SpO2 was as low as 91%. She has no respiratory complaints, lung sounds are clear in all lung gomez. Patient was requiring up to 3 L nasal cannula while in the emergency department. This was weaned off and she was able to maintain saturations of 95%. She denied any shortness of breath or chest pain. Chest x-ray was clear, no evidence of pneumonitis or evolving pneumonia, although this can take days to develop radiographically. Will start on empiric Augmentin given her witnessed aspiration and hypoxia today. Comfortable discharge home with oral antibiotics and outpatient follow-up. She agrees with plan and is stable for discharge home Differential Diagnosis Differential Diagnoses: The differential diagnosis associated with the presentation includes Aspiration pneumonitis, aspiration pneumonia, adverse reaction to anesthesia, gastroenteritis, bowel obstruction Admission/Observation Consideration of admission/observation: Escalation of care including admission/observation considered Hypoxia after procedure requiring supplemental oxygen however this was able to be weaned off and patient is stable for discharge home Lab Data MDM Lab Attestation statement: I reviewed the patient's lab results. No leukocytosis, no major metabolic derangement 10/12/22 10:56 10/12/22 10:55 Labs: Lab Results 10/12/22 10/12/22 Range/Units 10:55 10:56 WBC 8.8 (4.8-10.8) X10*3/uL RBC 4.54 (4.20-5.50) X10*6/uL Hgb 14.1 (12.0-16.0) g/dl Hct 42.4 (37.0-47.0) % MCV 93.4 (80.0-98.0) fL MCH 31.1 (27.0-33.0) pg MCHC 33.3 (31.0-35.0) g/dl RDW 12.2 (11.0-16.0) % Plt Count 237 (160-400) X10*3/uL MPV 9.7 (9.4-12.3) fL Immature Gran % (Auto) 0.5 H (0.0-0.4) % Neut % (Auto) 81.8 H (45-73) % Lymph % (Auto) 10.1 L (20-40) % [place] % (Auto) 6.5 (2-11) % Eos % (Auto) 0.5 (0-4) % Baso % (Auto) 0.6 (0-2) % Lymph # (Auto) 0.9 L (1.2-4.9) X10*3/uL [place] # (Auto) 0.6 (0.1-1.2) X10*3/uL Eos # (Auto) 0.0 (0.0-0.4) X10*3/uL Baso # (Auto) 0.1 (0.0-0.2) X10*3/uL Abs Immat Gran (auto) 0.04 H (0.00-0.03) X10*3/uL Absolute Neuts (auto) 7.2 (2.0-8.3) x10*3/uL Absolute Nucleated RBC 0.000 (0.0-0.012) X10*3/uL Nucleated RBC % (auto) 0.0 (0.0-0.2) /100WBC Sodium 142 (135-145) mmol/L Potassium 4.6 (3.3-5.1) mmol/L Chloride 108 (96-108) mmol/L Carbon Dioxide 25 (22-29) mmol/L Anion Gap 14 (12-20) BUN 13 (9-16) mg/dL Creatinine 0.90 (0.5-1.4) mg/dL Estim Creat Clear Calc 49.2 Estimated GFR > 60 Random Glucose 102 (60-115) mg/dL Calcium 10.4 H (8.4-10.2) mg/dL Magnesium 1.9 (1.6-2.6) mg/dL Total Bilirubin 0.6 (0.0-1.0) mg/dL Direct Bilirubin 0.2 (0.0-0.5) mg/dL AST 14 (5-31) U/L ALT 18 (0-31) U/L Alkaline Phosphatase 71 (39-117) U/L Total Protein 6.9 (6.5-8.0) g/dL Albumin 4.4 (3.5-5.0) g/dL Independent Interpretation I performed an independent interpretation of an: Plain X-Ray Interpretation: Chest x-ray clear, no pneumonitis changes or evidence of lobar pneumonia. Radiology Impression Discussion of test interpretation with radiology: I have reviewed the radiologist's reading. Radiologist Impression: XR/XR chest 2V IMPRESSION: No acute cardiopulmonary process. Independent Historian Clinical information obtained from an independent historian. History obtained from or confirmed by: Spouse External Record Review External record reviewed: Office record, Outpatient record, Prior outpatient labs and Prior outpatient radiology Prescription Management I considered prescription management with: Antibiotic Critical Care Time Critical Care Time Critical Care Time: No Discharge Plan Discharge Clinical Impression: Aspiration of vomit Patient Disposition: Home, Self-Care Instructions: Aspiration Pneumonia (DC) Additional Instructions: Your chest x-ray today was normal. No evidence of pneumonia at this time however this can take a couple of days to be seen on a chest x-ray. Recommend taking the prescribed antibiotics in order to help prevent conversion of pneumonitis into pneumonia. Follow-up with your doctor as needed. If you develop new or worsening symptoms call 911 or come back to the ER for further evaluation. Prescriptions: New amoxicillin-pot clavulanate 875-125 mg tablet 1 tab PO BID Qty: 14 0RF No Action atorvastatin 10 mg tablet 10 mg PO DAILY lorazepam 0.5 mg tablet 0.5 mg PO DAILY PRN (Reason: Anxiety) omeprazole 20 mg capsule,delayed release(DR/EC) 20 mg PO DAILY amlodipine 2.5 mg tablet 2.5 mg PO DAILY Interventions: ED Discharge Assessment Last Done: 10/12/22 12:12 Discharge Date/Time: 10/12/22 12:16
[2022-10-12 12:06] VITALS: BP 143/84; PULSE 94; RESP 16; TEMP 36.7; O2SAT 98
== END 2022-10-12 12:16 | disposition home or self-care (01) ==
PROVIDERS: Physician Assistant; Emergency Provider Emergency Medicine Emergency Medical Services; PCP Internal Medicine
DX: T17.918A Gastric contents in respiratory tract, part unspecified causing other injury, initial encounter (principal); X58.XXXA Exposure to other specified factors, initial encounter; Y93.9 Activity, unspecified; Y92.9 Unspecified place or not applicable; Y99.9 Unspecified external cause status; Z79.899 Other long term (current) drug therapy; Z87.891 Personal history of nicotine dependence
CPT/HCPCS: 36415; 71046; 80048; 80076; 83735; 85025; 99283; 99284

== ENCOUNTER 2023-03-12 08:25 | Outpatient (REF) | payer MEDICARE, SELFPAY ==
--- NOTE | ~2023-03-12 | US_ITS ---
EXAMINATION: US RETROPERITONEAL LIMITED (RENAL ONLY) CLINICAL INFORMATION: Cyst of kidney, acquired. COMPARISON: CT abdomen and pelvis without contrast 05/01/2022. Ultrasound retroperitoneal limited 01/30/2022 and 01/12/2021. TECHNIQUE: Real-time imaging of the kidneys. Limited visualization due to bowel gas. FINDINGS: RIGHT KIDNEY: 9.1 x 5.0 x 4.2 cm (SAG x AP x TRV). No hydronephrosis. No renal calculi. Renal cortical thickness is normal. Limited visualization. Lower pole 1.1 cm cyst with benign features. There is no indication for follow up imaging. LEFT KIDNEY: 10.0 x 3.9 x 4.5 cm (SAG x AP x TRV). No hydronephrosis. No renal calculi. Limited visualization. Upper pole 2.5 x 2.3 x 2.5 cm cyst redemonstrated. There is no indication for follow up imaging. Lateral upper pole 1.6 cm cyst with benign features redemonstrated. There is no indication for follow up imaging. US/US renal BI IMPRESSION: No hydronephrosis. No renal calculi. Limited visualization.
== END 2023-03-12 08:26 | disposition home or self-care (01) ==
LOC: HO.US 08:25
PROVIDERS: PCP Internal Medicine; Visit Provider Urology
DX: N28.1 Cyst of kidney, acquired (principal)
CPT/HCPCS: 76775

== ENCOUNTER 2023-03-27 10:34 | Outpatient (AMB) | payer MEDICARE, SELFPAY ==
--- NOTE | 2023-03-27 10:50 | MHC.OFFVIS ---
Intake Intake Visit Reasons: 1y US(set) Intake Note: Patient is present for ultrasound follow up Current Urology Medication:none Blood Thinner:none Senior User Experience Architect Required: No Accompanied by: Self / Same As Patient Allergies latex Allergy (Verified 04/07/23 18:41) SKIN ITTIRATION/REDNESS HPI HPI Comments History of Present Illness Details Vale is very pleasant female. She is seen for the following urologic conditions - complex cyst - nephrolithiasis Discussed findings Stable complex cyst Did have recent diagnosis of osteopenia Is taking Citracal and very active with [email or web address] [place] [employer] Complex renal cyst Longstanding Followed with serial imaging Ultrasound - 12/01 left 2.5 cm complex cyst with thin wall, question of 3 mm stone bilateral - 01/02 left 2.7 cm complex cyst with thin wall question, right 1.5 cm - 04/05 CT scan nephrolithiasis, cyst Bosniak 1 Continue with surveillance [facility] Medical History Anxiety Cataracts, bilateral Facial basal cell cancer GERD (gastroesophageal reflux disease) History of skin cancer HTN (hypertension) Hyperlipidemia Renal cyst, acquired Renal stones Surgical History H/O lithotripsy H/O tubal ligation History of biopsy History of cataract surgery Status post Mohs surgery Social History Patient Tobacco Use Status: Former Tobacco user Tobacco use type: Cigarette Cigarette Packs Per Day: 1.5 Cigarettes Per Day: 30.0 Years Smoked: 35 Review of Systems Const Denies chills and Denies fever(s) Card Reports no additional complaints and Denies syncope Resp Denies cough GI Denies abdominal pain and Denies heartburn Reports as per HPI and Denies change in libido Neuro Denies syncope Psych Denies change in libido Endo Denies change in libido Physical Exam Const General: cooperative, healthy appearing, comfortable and no acute distress Orientation/consciousness: patient oriented x3 HEENT Face and sinus: Yes normal facial exam Mouth: moist mucous membranes Neck Neck: Yes normal visual inspection, Yes full ROM and Yes trachea midline Chest Chest palpation & inspection: normal inspection of the chest Resp Effort & Inspection: normal respiratory effort, able to speak in complete sentences and no respiratory distress GI Inspection: Yes normal to inspection Back/Spine/Pelvis Cervical Spine: normal cervical lordosis Thoracic/Lumbar Spine: thoracic and lumbar spine normal to inspection Skin General skin exam: no rashes or lesions noted Neuro General: patient oriented x3, gait normal, tone normal and moves all extremities Extrem General: Yes normal to inspection and Yes capillary refill normal Results AMB Urinalysis, Automated UA Leukoctes 15 Alex/uL Last Edit by Maria Marroquin Julianne on 03/27/23 10:59 UA Nitrite Negative Last Edit by Maria Marroquin [facility] on 03/27/23 10:59 UA Urobilinogen 0.2 mg/dL Last Edit by Maria Marroquin [facility] on 03/27/23 10:59 UA Protein 15 mg/dL Last Edit by Maria Marroquin [facility] on 03/27/23 10:59 UA pH 6.0 Last Edit by Maria Marroquin [facility] on 03/27/23 10:59 UA Blood 0 Дмитрий/uL Last Edit by Maria Marroquin [facility] on 03/27/23 10:59 UA Specific [place] 1.020 Last Edit by Maria Marroquin [facility] on 03/27/23 10:59 UA Ketone Negative Last Edit by Maria Marroquin Julianne on 03/27/23 10:59 UA Bilirubin 0 mg/dL Last Edit by Maria Marroquin [facility] on 03/27/23 10:59 UA Glucose 0 mg/dL Last Edit by Maria Marroquin [facility] on 03/27/23 10:59 Results Reviewed Results Reviewed: Laboratory Last Values Urine pH (Auto) 6.0 03/27/23 10:56 Specific [place] (Auto) 1.020 03/27/23 10:56 Urine Protein (Auto) 15 mg/dL 03/27/23 10:56 Glucose (UA)(Auto) 0 mg/dL 03/27/23 10:56 Urine Ketones (Auto) Negative 03/27/23 10:56 Urine Blood (Auto) 0 Дмитрий/uL 03/27/23 10:56 Urine Nitrite (Auto) Negative 03/27/23 10:56 Urine Bilirubin (Auto) 0 mg/dL 03/27/23 10:56 Urine Urobilinogen (Auto) 0.2 mg/dL 03/27/23 10:56 Leukocyte Esterase (Auto) 15 Alex/uL 03/27/23 10:56 Assessment & Plan Assessment & Plan (1) Kidney cysts: Code(s): N28.1 - Cyst of kidney, acquired Plan Twelve month follow-up Orders: Orders AMB Urinalysis Automated 03/27/23 Z13.9 - Encounter for screening, unspecified Patient Instructions: Imaging studies, laboratory and physical exam results were discussed and reviewed in detail. No major barriers to patient understanding were identified. An opportunity to ask questions regarding the treatment plan was provided. All questions were answered. The patient expressed understanding and agreement with the above treatment plan. The patient is aware they should contact our office by phone for worsening of their current condition or the appearance of new urologic symptoms. Compliance is encouraged with any medications and followup testing that is ordered. It is a privilege to participate in the urologic care of your patient. If you have any questions or concerns regarding treatment for the above conditions, or other urologic issues, please do not hesitate to contact me. The office telephone contact is [phone]. This note is constructed using voice recognition software. While every effort has been made to ensure accuracy pulp roller errors may have been included. Yours sincerely, Dr Yasir Beaulieu MD, [facility] - Urology Providers of Expert, Compassionate Care for the Genitourinary System Coding Level of Care Code Est Pt Level 4 (19656) Diagnoses Kidney cysts N28.1
== END 2023-03-27 12:49 | disposition home or self-care (01) ==
PROVIDERS: Visit Provider Urology
DX: N28.1 Cyst of kidney, acquired (principal)
CPT/HCPCS: 99213

== ENCOUNTER → 2023-03-27 10:34 | Outpatient (BNVA) | payer MEDICARE, SELFPAY | PROVIDERS: Visit Provider Urology | DX: N28.1 Cyst of kidney, acquired (principal) | CPT/HCPCS: 81003; 99212 ==

== ENCOUNTER 2023-04-07 18:14 | Emergency (ER) | payer MEDICARE, SELFPAY ==
--- NOTE | ~2023-04-07 | CT_ITS ---
EXAMINATION: CT ABDOMEN AND PELVIS WITHOUT CONTRAST CLINICAL INFORMATION: Left flank pain COMPARISON: 04/21/2022 TECHNIQUE: Multidetector volumetric imaging was performed from the superior aspect of the liver through the pubic symphysis. Sagittal and coronal reformatted images were obtained on the technologist's workstation. This CT examination was performed using dose optimization techniques as appropriate, variously including the following: *Automated exposure control *Adjustment of mA and/or kV according to patient size (this includes techniques or standardized protocols for targeted exams where dose is matched to indication/reason for exam; i.e. extremities or head) *Use of iterative reconstruction technique DLP: 473 mGy-cm FINDINGS: LUNG BASES: The visualized lung bases are unremarkable. LIVER, GALLBLADDER, AND BILIARY TREE: The liver is normal in size, shape, and attenuation. No focal hepatic lesion or biliary ductal dilatation is present. The gallbladder is unremarkable with no evidence of radiopaque gallstones, gallbladder wall thickening, or obvious pericholecystic inflammatory changes. PANCREAS: Unremarkable. SPLEEN: Unremarkable. ADRENAL GLANDS: A 1.3 water density nodule is present in the right adrenal gland with a 1.4 cm nodule on the left consistent with benign adenomas, unchanged from prior. KIDNEYS AND URETERS: The kidneys are normal in size, shape, and attenuation. Bilateral punctate nonobstructing renal calculi are seen, left greater than right with the largest measuring only 2.5 mm. There is mild fullness in the left renal collecting system and left ureter but a definite stone is not seen within the ureter. Multiple phleboliths and calcifications are seen in the pelvis but I cannot say with certainty that any of these are in within the ureter and the pattern of calcification is unchanged when compared to the 04/21/2022 study. There is bilateral nonspecific perinephric stranding. Bilateral benign Bosniak class I renal cysts are noted which require no additional imaging or follow-up. No solid renal masses are seen. BLADDER: Unremarkable. GASTROINTESTINAL TRACT: A small hiatal hernia is present. The small and large bowel are unremarkable. The appendix is unremarkable. ABDOMINAL WALL: No significant hernia is appreciated. LYMPH NODES: No retroperitoneal lymphadenopathy. VASCULAR: Calcific atherosclerotic plaque present in the aorta and iliofemoral vessels. PELVIC VISCERA: The uterus and adnexa are unremarkable. OSSEOUS STRUCTURES: Degenerative changes are present throughout the spine. CT/CT abdomen pelvis wo IV con IMPRESSION: 1. Bilateral punctate nonobstructing renal calculi, left greater than right. 2. Mild fullness in the left renal collecting system and left ureter but a definite stone is not seen within the ureter. 3. Bilateral benign adrenal adenomas which require no additional imaging or follow-up. 4. Other incidental findings as described above. Fleischner guidelines were followed.
[2023-04-07 18:41] VITALS: PULSE 95; RESP 20; TEMP 36.3; O2SAT 95; BMI 27.4
[2023-04-07 19:12] LABS: MANUAL DIFF FLAG NO
[2023-04-07 19:14] LABS: Basophils Absolute Auto 0.1 X10*3/uL (0.0-0.2); Basophils Percent Auto 0.8 % (0-2); Eosinophils Absolute Auto 0.2 X10*3/uL (0.0-0.4); Eosinophils Percent Auto 3.1 % (0-4); Hematocrit 37.6 % (37.0-47.0); Hemoglobin 12.9 g/dl (12.0-16.0); Imm Gran Abs Auto 0.02 X10*3/uL (0.00-0.03); Imm Gran Pct Auto 0.3 % (0.0-0.4); Lymphocytes Absolute Auto 1.9 X10*3/uL (1.2-4.9); Mean Corpuscular HGB Conc 34.3 g/dl (31.0-35.0); Mean Corpuscular Hemoglobin 31.1 pg (27.0-33.0); Mean Corpuscular Volume 90.6 fL (80.0-98.0); Mean Platelet Volume 9.6 fL (9.4-12.3); Monocytes Absolute Auto 0.6 X10*3/uL (0.1-1.2); Monocytes Percent Auto 8.2 % (2-11); Neutrophils Absolute Auto 4.8 x10*3/uL (2.0-8.3); Neutrophils Percent Auto 62.6 % (45-73); Platelet Count 237 X10*3/uL (160-400); Red Blood Count 4.15 X10*6/uL (4.20-5.50); Red Cell Distribution Width 12.6 % (11.0-16.0); White Blood Count 7.7 X10*3/uL (4.8-10.8)
[2023-04-07 19:29] LABS: Alanine Aminotransferase 20 U/L (0-31); Albumin Level 4.3 g/dL (3.5-5.0); Alkaline Phosphatase 79 U/L (39-117); Anion Gap 13 (12-20); Aspartate Amino Transferase 20 U/L (5-31); Bilirubin Direct 0.1 mg/dL (0.0-0.5); Bilirubin Total 0.3 mg/dL (0.0-1.0); Blood Urea Nitrogen 19 mg/dL (9-16); Calcium 10.3 mg/dL (8.4-10.2); Carbon Dioxide 24 mmol/L (22-29); Chloride 109 mmol/L (96-108); Estimated Glomerular Filt Rate 34; Glucose Random 114 mg/dL (60-115); Lipase 25 U/L (8-78); Potassium 4.1 mmol/L (3.3-5.1); Sodium 142 mmol/L (135-145); Total Protein 7.4 g/dL (6.5-8.0)
--- NOTE | 2023-04-07 19:45 | PC.NURSE ---
Assumed care of the pt at 1900. Pt presents for flank pain, similar to previous episodes of kidney stones. Pt reports 8/10 pain at this time with nausea and vomiting. Pt denies hematuria. SCOTT Walsh placed a 20g IV in the left AC and hung liter of fluids. Labs were drawn and sent. Pt resting in bed at this time with at the bedside, waiting to be seen by provider at this time.
--- NOTE | 2023-04-07 21:12 | ED_ITS ---
HPI - General Adult General Chief complaint: Abdominal Pain Stated complaint: left lower flank pain ? kidney stone Time Seen by Provider: 04/07/23 21:08 Source: patient, family and RN notes reviewed Mode of arrival: ambulatory Limitations: no limitations History of Present Illness HPI narrative: Pt is a 77yo female who presents to the ED complaining of having a kidney stone. She states that at around 4:30 she started having flank pain on the left side that radiates to the left lower quadrant. She also had nausea, vomiting, and some chills. Pt states the nausea and vomiting have resolved and the flank/LLQ pain is currently a 3/10. Pt notes a hx of kidney stones with a lithotripsy 5-6 years ago. Pt denies fever, hematuria, or headaches. Related Data Home Medications Medication Instructions Recorded Confirmed atorvastatin 10 mg tablet 10 mg PO DAILY 01/27/21 10/12/22 lorazepam 0.5 mg tablet 0.5 mg PO DAILY PRN Anxiety 01/27/21 10/12/22 amlodipine 2.5 mg tablet 2.5 mg PO DAILY 03/20/22 10/12/22 omeprazole 20 mg capsule,delayed 20 mg PO DAILY 03/20/22 10/12/22 release Previous Rx's Medication Instructions Recorded amoxicillin 875 mg-potassium 1 tab PO BID #14 tabs 10/12/22 clavulanate 125 mg tablet Allergies Allergy/AdvReac Type Severity Reaction Status Date / Time latex Allergy SKIN Verified 04/07/23 18:41 ITTIRATION/REDNESS Review of Systems 2 Constitutional: Constitutional: Reports chills, Denies fever(s) and Denies headache(s) Eyes: Eyes: Denies change in vision ENT: Denies dizziness and Denies headache(s) Cardiovascular: Cardiovascular: Denies chest pain and Denies dyspnea Respiratory: Respiratory: Denies cough and Denies dyspnea Gastrointestinal: Gastrointestinal: Denies abdominal pain, Denies constipation, Denies diarrhea, Reports nausea and Reports vomiting Genitourinary: Genitourinary: Denies hematuria, Denies dysuria and Reports flank pain (left) Neurologic: Denies dizziness and Denies headache(s) Endocrine: Endocrine: Reports polyuria PMFSH Past Medical History Medical History Anxiety Cataracts, bilateral Facial basal cell cancer GERD (gastroesophageal reflux disease) History of skin cancer HTN (hypertension) Hyperlipidemia Renal cyst, acquired Renal stones Surgical History H/O lithotripsy H/O tubal ligation History of biopsy History of cataract surgery Status post Mohs surgery Social History Patient Tobacco Use Status: Former Tobacco user Tobacco use type: Cigarette Cigarette Packs Per Day: 1.5 Cigarettes Per Day: 30.0 Years Smoked: 35 Smoked in Last 30 Days: No Use of substances other than those prescribed or required for medical reasons: No Advance Directives: No Advance Directives Information Provided: No Physical Exam ED Vital Signs: Vital Signs - 24 hr 04/07/23 18:41 04/07/23 23:23 Temperature 97.4 F 97.7 F Pulse Rate 95 82 Respiratory Rate 20 16 Blood Pressure 150/84 H Pulse Oximetry 95 96 Oxygen Delivery Method Room Air Room Air BMI result Body Mass Index 27.4 Const General: cooperative, comfortable, no acute distress, alert and awake Orientation/consciousness: patient oriented x3 HENMT Head: Yes normocephalic and Yes atraumatic Ears: hearing grossly normal bilaterally General nose exam: Normal external nose present Eyes General: appearance normal, both eyes and all related structures Eyelids: Yes eyelids normal Conjunctivae: conjunctivae normal Pupils: Equal, round and reactive pupils present Direct Ophthalmoscopy: normal light reflex Resp Effort & Inspection: normal respiratory effort and able to speak in complete sentences Auscultation: clear to auscultation bilaterally Cardio Rate: regular rate Rhythm: regular rhythm Heart sounds: S1 normal heart sound present and S2 normal heart sound present GI Palpation (GI): nontender Auscultation: normal bowel sounds General: Yes CVA tenderness (left sided) Back/Spine/Pelvis Back: CVA tenderness (left sided) Neuro General: patient oriented x3 Cranial nerves: Yes CN's II-XII intact bilaterally and Yes Equal, round and reactive pupils present Motor exam (neuro): 5/5 motor strength present throughout Medical Decision Making Medical Decision Making MDM Narrative: Patient's pain is currently well controlled, however given her increased creatinine we will get a CT scan to evaluate for obstructive uropathy and or signs of obstructive uropathy. Patient declines analgesia and antiemetics at this time. Therefore we will withhold IV medications at this time. UA is still pending to evaluate for infectious process. CT scan shows likely recently passed stone Differential Diagnosis Differential Diagnoses: The differential diagnosis associated with the presentation includes (kidney stone, pyelonephritis, UTI, muscle spasms, muscle strain) Admission/Observation Consideration of admission/observation: Escalation of care including admission/observation considered Mild TIFFANY however can be treated with oral intake Lab Data MDM Lab Attestation statement: I reviewed the patient's lab results. No leukocytosis or anemia. Patient has a slight elevation of the BUN and creatinine to 19 and 1.4 not actively her baseline appears to be around 0.9. No significant electrolyte abnormalities. Scleritis is normal at 109 04/07/23 19:08 04/07/23 19:08 Labs: Lab Results 04/07/23 04/07/23 Range/Units 19:08 23:25 WBC 7.7 (4.8-10.8) X10*3/uL RBC 4.15 L (4.20-5.50) X10*6/uL Hgb 12.9 (12.0-16.0) g/dl Hct 37.6 (37.0-47.0) % MCV 90.6 (80.0-98.0) fL MCH 31.1 (27.0-33.0) pg MCHC 34.3 (31.0-35.0) g/dl RDW 12.6 (11.0-16.0) % Plt Count 237 (160-400) X10*3/uL MPV 9.6 (9.4-12.3) fL Immature Gran % (Auto) 0.3 (0.0-0.4) % Neut % (Auto) 62.6 (45-73) % Lymph % (Auto) 25.0 (20-40) % [place] % (Auto) 8.2 (2-11) % Eos % (Auto) 3.1 (0-4) % Baso % (Auto) 0.8 (0-2) % Lymph # (Auto) 1.9 (1.2-4.9) X10*3/uL [place] # (Auto) 0.6 (0.1-1.2) X10*3/uL Eos # (Auto) 0.2 (0.0-0.4) X10*3/uL Baso # (Auto) 0.1 (0.0-0.2) X10*3/uL Abs Immat Gran (auto) 0.02 (0.00-0.03) X10*3/uL Absolute Neuts (auto) 4.8 (2.0-8.3) x10*3/uL Absolute Nucleated RBC 0.000 (0.0-0.012) X10*3/uL Nucleated RBC % (auto) 0.0 (0.0-0.2) /100WBC Sodium 142 (135-145) mmol/L Potassium 4.1 (3.3-5.1) mmol/L Chloride 109 H (96-108) mmol/L Carbon Dioxide 24 (22-29) mmol/L Anion Gap 13 (12-20) BUN 19 H (9-16) mg/dL Creatinine 1.49 H (0.5-1.4) mg/dL Estim Creat Clear Calc 29.0 Estimated GFR 34 Random Glucose 114 (60-115) mg/dL Calcium 10.3 H (8.4-10.2) mg/dL Total Bilirubin 0.3 (0.0-1.0) mg/dL Direct Bilirubin 0.1 (0.0-0.5) mg/dL AST 20 (5-31) U/L ALT 20 (0-31) U/L Alkaline Phosphatase 79 (39-117) U/L Total Protein 7.4 (6.5-8.0) g/dL Albumin 4.3 (3.5-5.0) g/dL Lipase 25 (8-78) U/L Urine Color Yellow Urine Appearance Clear Urine pH 7.0 (5.0-9.0) Ur Specific [place] <= 1.005 (1.005-1.025) Urine Protein Negative (Neg-Trace) mg/dL Urine Glucose (UA) Negative (Negative) mg/dL Urine Ketones Negative (Negative) mg/dL Urine Blood Moderate (2+) H (Negative) Urine Nitrite Negative (Negative) Ur Leukocyte Esterase Negative (Negative) Independent Interpretation I performed an independent interpretation of an: CT Scan (Mild hydroureter) Radiology Impression Discussion of test interpretation with radiology: I have reviewed the radiologist's reading. (Fullness to the left renal collecting system, no obvious obstructive stone seen) Discharge Plan Discharge Clinical Impression: Kidney stone on left side, TIFFANY (acute kidney injury) Patient Disposition: Home, Self-Care Instructions: Kidney Stones (ED) Additional Instructions: Your CT scan showed that you likely had a recently passed stone on the left. Your blood work showed a slight elevation in your kidney function, so you should drink lots of fluids to help hydrate improved this Your urine did not show any evidence of bacteria Follow-up with your primary doctor Prescriptions: No Action amoxicillin-pot clavulanate 875-125 mg tablet 1 tab PO BID Qty: 14 0RF atorvastatin 10 mg tablet 10 mg PO DAILY lorazepam 0.5 mg tablet 0.5 mg PO DAILY PRN (Reason: Anxiety) omeprazole 20 mg capsule,delayed release(DR/EC) 20 mg PO DAILY amlodipine 2.5 mg tablet 2.5 mg PO DAILY
[2023-04-07 23:23] VITALS: BP 150/84; PULSE 82; RESP 16; TEMP 36.5; O2SAT 96
[2023-04-07 23:32] LABS: Appearance Urine Clear; Color Urine Yellow; Glucose Urine UA Negative (Negative); Leukocyte Esterase Urine Negative (Negative); Nitrite Urine Negative (Negative); Specific Gravity - Urine <= 1.005 (1.005-1.025); UMIC TRIGGER UACC YES; Urine Blood Moderate (2+) (Negative); Urine Ketones Negative (Negative); Urine Protein Negative (Neg-Trace)
[2023-04-07 23:36] LABS: Bacteria Urine None Seen (None Seen); Hyaline Casts Urine 0-2 /LPF (0-2); Squamous Epithelial Cell Urine 0-2 /HPF (0-2); WBC Urine 0-5 /HPF (0-5)
== END 2023-04-08 00:12 | disposition home or self-care (01) ==
PROVIDERS: Emergency Provider Emergency Medicine Emergency Medical Services; PCP Internal Medicine
DX: N20.0 Calculus of kidney (principal); N17.9 Acute kidney failure, unspecified; R10.32 Left lower quadrant pain; I10 Essential (primary) hypertension; E78.5 Hyperlipidemia, unspecified; Z87.891 Personal history of nicotine dependence; Z87.442 Personal history of urinary calculi; Z79.02 Long term (current) use of antithrombotics/antiplatelets; Z79.899 Other long term (current) drug therapy
CPT/HCPCS: 36415; 74176; 80048; 80076; 81001; 83690; 85025; 99284

== ENCOUNTER 2023-04-12 07:57 | Outpatient (REF) | payer MEDICARE, SELFPAY | END 2023-04-12 07:58 | disposition home or self-care (01) | LOC: HO.MAMMO 07:57 | PROVIDERS: PCP Internal Medicine; Visit Provider Internal Medicine | DX: Z12.31 Encounter for screening mammogram for malignant neoplasm of breast (principal) | CPT/HCPCS: 77063; 77067 ==

== ENCOUNTER → 2023-04-12 08:15 | Outpatient (BNV) | payer MEDICARE, SELFPAY | PROVIDERS: PCP Internal Medicine; Visit Provider Radiology Diagnostic Radiology | DX: Z12.31 Encounter for screening mammogram for malignant neoplasm of breast (principal) | CPT/HCPCS: 77063; 77067 ==

== ENCOUNTER 2023-06-01 06:39 | Outpatient (REF) | payer MEDICARE, SELFPAY ==
[2023-06-01 06:52] LABS: MANUAL DIFF FLAG NO
[2023-06-01 07:06] LABS: Basophils Absolute Auto 0.1 X10*3/uL (0.0-0.2); Eosinophils Absolute Auto 0.2 X10*3/uL (0.0-0.4); Eosinophils Percent Auto 3.6 % (0-4); Hematocrit 41.2 % (37.0-47.0); Hemoglobin 13.9 g/dl (12.0-16.0); Imm Gran Abs Auto 0.02 X10*3/uL (0.00-0.03); Imm Gran Pct Auto 0.3 % (0.0-0.4); Lymphocytes Absolute Auto 1.7 X10*3/uL (1.2-4.9); Mean Corpuscular HGB Conc 33.7 g/dl (31.0-35.0); Mean Corpuscular Hemoglobin 31.4 pg (27.0-33.0); Mean Corpuscular Volume 93.2 fL (80.0-98.0); Mean Platelet Volume 10.1 fL (9.4-12.3); Monocytes Absolute Auto 0.5 X10*3/uL (0.1-1.2); Monocytes Percent Auto 7.8 % (2-11); Neutrophils Absolute Auto 3.6 x10*3/uL (2.0-8.3); Neutrophils Percent Auto 59.3 % (45-73); Platelet Count 232 X10*3/uL (160-400); Red Blood Count 4.42 X10*6/uL (4.20-5.50); Red Cell Distribution Width 12.5 % (11.0-16.0); White Blood Count 6.1 X10*3/uL (4.8-10.8)
[2023-06-01 07:15] LABS: Alanine Aminotransferase 19 U/L (0-31); Albumin Level 4.2 g/dL (3.5-5.0); Alkaline Phosphatase 74 U/L (39-117); Anion Gap 10 (12-20); Aspartate Amino Transferase 15 U/L (5-31); Bilirubin Total 0.6 mg/dL (0.0-1.0); Blood Urea Nitrogen 14 mg/dL (9-16); Calcium 10.1 mg/dL (8.4-10.2); Carbon Dioxide 29 mmol/L (22-29); Chloride 110 mmol/L (96-108); Cholesterol 165 mg/dL (<200); Estimated Glomerular Filt Rate 53; Glucose Fasting 109 mg/dL (60-99); HDL Cholesterol 55 mg/dL (>40); LDL Cholesterol Calculated 90 mg/dL (<100); Potassium 4.7 mmol/L (3.3-5.1); Sodium 144 mmol/L (135-145); Total Protein 7.1 g/dL (6.5-8.0); Triglycerides 101 mg/dL (<150)
== END 2023-06-01 06:40 | disposition home or self-care (01) ==
LOC: HO.LAB 06:39
PROVIDERS: PCP Internal Medicine; Visit Provider Internal Medicine
DX: I10 Essential (primary) hypertension (principal); E78.00 Pure hypercholesterolemia, unspecified
CPT/HCPCS: 36415; 80053; 80061; 85025

== ENCOUNTER 2023-09-03 07:11 | Outpatient (REF) | payer MEDICARE, SELFPAY ==
[2023-09-03 07:21] LABS: MANUAL DIFF FLAG NO
[2023-09-03 08:01] LABS: Basophils Absolute Auto 0.1 X10*3/uL (0.0-0.2); Basophils Percent Auto 0.7 % (0-2); Eosinophils Absolute Auto 0.2 X10*3/uL (0.0-0.4); Eosinophils Percent Auto 3.3 % (0-4); Hematocrit 40.7 % (37.0-47.0); Hemoglobin 13.8 g/dl (12.0-16.0); Imm Gran Abs Auto 0.02 X10*3/uL (0.00-0.03); Imm Gran Pct Auto 0.3 % (0.0-0.4); Lymphocytes Absolute Auto 1.7 X10*3/uL (1.2-4.9); Lymphocytes Percent Auto 24.9 % (20-40); Mean Corpuscular HGB Conc 33.9 g/dl (31.0-35.0); Mean Corpuscular Hemoglobin 31.4 pg (27.0-33.0); Mean Corpuscular Volume 92.5 fL (80.0-98.0); Mean Platelet Volume 9.9 fL (9.4-12.3); Monocytes Absolute Auto 0.5 X10*3/uL (0.1-1.2); Monocytes Percent Auto 7.4 % (2-11); Neutrophils Absolute Auto 4.4 x10*3/uL (2.0-8.3); Neutrophils Percent Auto 63.4 % (45-73); Platelet Count 234 X10*3/uL (160-400); Red Cell Distribution Width 12.5 % (11.0-16.0); White Blood Count 6.9 X10*3/uL (4.8-10.8)
[2023-09-03 08:41] LABS: Alanine Aminotransferase 19 U/L (0-31); Albumin Level 4.3 g/dL (3.5-5.0); Alkaline Phosphatase 78 U/L (39-117); Anion Gap 11 (12-20); Aspartate Amino Transferase 15 U/L (5-31); Bilirubin Total 0.5 mg/dL (0.0-1.0); Blood Urea Nitrogen 12 mg/dL (9-16); Calcium 10.2 mg/dL (8.4-10.2); Carbon Dioxide 29 mmol/L (22-29); Chloride 107 mmol/L (96-108); Estimated Glomerular Filt Rate 59; Glucose Random 138 mg/dL (60-115); Sodium 143 mmol/L (135-145); Total Protein 7.2 g/dL (6.5-8.0)
== END 2023-09-03 07:12 | disposition home or self-care (01) ==
LOC: HO.LAB 07:11
PROVIDERS: PCP Internal Medicine; Visit Provider Internal Medicine
DX: I10 Essential (primary) hypertension (principal); K21.9 Gastro-esophageal reflux disease without esophagitis; J44.9 Chronic obstructive pulmonary disease, unspecified
CPT/HCPCS: 36415; 80053; 85025

== ENCOUNTER 2023-12-20 06:31 | Outpatient (REF) | payer MEDICARE, SELFPAY ==
[2023-12-20 07:43] LABS: Anion Gap 11 (12-20); Blood Urea Nitrogen 14 mg/dL (9-16); Calcium 10.5 mg/dL (8.4-10.2); Carbon Dioxide 29 mmol/L (22-29); Chloride 107 mmol/L (96-108); Estimated Glomerular Filt Rate 48; Glucose Random 103 mg/dL (60-115); Potassium 4.7 mmol/L (3.3-5.1); Sodium 142 mmol/L (135-145)
== END 2023-12-20 06:32 | disposition home or self-care (01) ==
LOC: HO.LAB 06:31
PROVIDERS: PCP Internal Medicine; Visit Provider Internal Medicine
DX: I12.9 Hypertensive chronic kidney disease with stage 1 through stage 4 chronic kidney disease, or unspecified chronic kidney disease (principal); N18.9 Chronic kidney disease, unspecified; J44.9 Chronic obstructive pulmonary disease, unspecified
CPT/HCPCS: 36415; 80048

== ENCOUNTER 2024-03-03 14:15 | Outpatient (REF) | payer MEDICARE, SELFPAY ==
[2024-03-03 14:45] LABS: MANUAL DIFF FLAG NO
[2024-03-03 15:00] LABS: Basophils Percent Auto 0.4 % (0-2); Eosinophils Absolute Auto 0.2 X10*3/uL (0.0-0.4); Eosinophils Percent Auto 2.3 % (0-4); Hematocrit 40.2 % (37.0-47.0); Hemoglobin 13.7 g/dl (12.0-16.0); Imm Gran Abs Auto 0.02 X10*3/uL (0.00-0.03); Imm Gran Pct Auto 0.3 % (0.0-0.4); Lymphocytes Absolute Auto 1.9 X10*3/uL (1.2-4.9); Mean Corpuscular HGB Conc 34.1 g/dl (31.0-35.0); Mean Corpuscular Hemoglobin 31.2 pg (27.0-33.0); Mean Corpuscular Volume 91.6 fL (80.0-98.0); Monocytes Absolute Auto 0.6 X10*3/uL (0.1-1.2); Monocytes Percent Auto 8.1 % (2-11); Neutrophils Absolute Auto 4.3 x10*3/uL (2.0-8.3); Neutrophils Percent Auto 61.9 % (45-73); Platelet Count 225 X10*3/uL (160-400); Red Blood Count 4.39 X10*6/uL (4.20-5.50); Red Cell Distribution Width 12.1 % (11.0-16.0); White Blood Count 6.9 X10*3/uL (4.8-10.8)
[2024-03-03 15:06] LABS: Appearance Urine Clear; Color Urine Yellow; Glucose Urine UA Negative (Negative); Leukocyte Esterase Urine Trace (Negative); Nitrite Urine Negative (Negative); PH 5.5 (5.0-9.0); Specific Gravity - Urine 1.015 (1.005-1.025); UMIC TRIGGER UACC YES; Urine Blood Negative (Negative); Urine Ketones Negative (Negative); Urine Protein Negative (Neg-Trace)
[2024-03-03 15:12] LABS: Bacteria Urine None Seen (None Seen); Hyaline Casts Urine 0-2 /LPF (0-2); RBC Urine 0-2 /HPF (0-2); Squamous Epithelial Cell Urine 0-2 /HPF (0-2); WBC Urine 0-5 /HPF (0-5)
[2024-03-03 15:45] LABS: Erythrocyte Sedimentation Rate 17 MM/HR (0-20)
[2024-03-03 15:52] LABS: Alanine Aminotransferase 21 U/L (0-31); Albumin Level 4.3 g/dL (3.5-5.0); Alkaline Phosphatase 80 U/L (39-117); Anion Gap 11 (12-20); Aspartate Amino Transferase 18 U/L (5-31); Bilirubin Total 0.3 mg/dL (0.0-1.0); Blood Urea Nitrogen 17 mg/dL (9-16); C Reactive Protein 0.41 mg/dL (< or = 0.50); Calcium 10.5 mg/dL (8.4-10.2); Carbon Dioxide 29 mmol/L (22-29); Chloride 106 mmol/L (96-108); Estimated Glomerular Filt Rate 46; Glucose Random 120 mg/dL (60-115); Potassium 4.3 mmol/L (3.3-5.1); Sodium 142 mmol/L (135-145); Total Protein 7.2 g/dL (6.5-8.0)
== END 2024-03-03 14:16 | disposition home or self-care (01) ==
LOC: HO.LAB 14:15
PROVIDERS: PCP Internal Medicine; Visit Provider Internal Medicine
DX: I10 Essential (primary) hypertension (principal); R10.9 Unspecified abdominal pain
CPT/HCPCS: 36415; 80053; 81001; 82550; 85025; 85652; 86140; 87086

== ENCOUNTER 2024-03-17 08:26 | Outpatient (REF) | payer MEDICARE, SELFPAY ==
[2024-03-17 08:54] LABS: MANUAL DIFF FLAG NO
[2024-03-17 09:54] LABS: Basophils Percent Auto 0.7 % (0-2); Eosinophils Absolute Auto 0.2 X10*3/uL (0.0-0.4); Eosinophils Percent Auto 3.7 % (0-4); Hematocrit 40.8 % (37.0-47.0); Hemoglobin 13.8 g/dl (12.0-16.0); Imm Gran Abs Auto 0.02 X10*3/uL (0.00-0.03); Imm Gran Pct Auto 0.4 % (0.0-0.4); Lymphocytes Absolute Auto 1.4 X10*3/uL (1.2-4.9); Lymphocytes Percent Auto 24.2 % (20-40); Mean Corpuscular HGB Conc 33.8 g/dl (31.0-35.0); Mean Corpuscular Hemoglobin 31.2 pg (27.0-33.0); Mean Corpuscular Volume 92.3 fL (80.0-98.0); Mean Platelet Volume 10.1 fL (9.4-12.3); Monocytes Absolute Auto 0.5 X10*3/uL (0.1-1.2); Monocytes Percent Auto 8.2 % (2-11); Neutrophils Absolute Auto 3.5 x10*3/uL (2.0-8.3); Neutrophils Percent Auto 62.8 % (45-73); Platelet Count 238 X10*3/uL (160-400); Red Blood Count 4.42 X10*6/uL (4.20-5.50); Red Cell Distribution Width 12.2 % (11.0-16.0); White Blood Count 5.6 X10*3/uL (4.8-10.8)
[2024-03-17 10:15] LABS: Estimated Average Glucose 108 mg/dL; Hemoglobin A1C 123.0437 umol/L; Hemoglobin A1c % 5.4 % (<6.0); Total Hemoglobin (HGBA1C) 3460.1627 umol/L
[2024-03-17 10:56] LABS: Alanine Aminotransferase 22 U/L (0-31); Albumin Level 4.2 g/dL (3.5-5.0); Alkaline Phosphatase 77 U/L (39-117); Anion Gap 13 (12-20); Aspartate Amino Transferase 17 U/L (5-31); Bilirubin Total 0.7 mg/dL (0.0-1.0); Blood Urea Nitrogen 14 mg/dL (9-16); Calcium 10.2 mg/dL (8.4-10.2); Carbon Dioxide 24 mmol/L (22-29); Chloride 109 mmol/L (96-108); Cholesterol 168 mg/dL (<200); Estimated Glomerular Filt Rate 50; Glucose Fasting 89 mg/dL (60-99); HDL Cholesterol 55 mg/dL (>40); LDL Cholesterol Calculated 91 mg/dL (<100); Potassium 4.3 mmol/L (3.3-5.1); Sodium 142 mmol/L (135-145); Total Protein 7.1 g/dL (6.5-8.0); Triglycerides 110 mg/dL (<150)
== END 2024-03-17 08:27 | disposition home or self-care (01) ==
LOC: HO.LAB 08:26
PROVIDERS: PCP Internal Medicine; Visit Provider Internal Medicine
DX: I12.9 Hypertensive chronic kidney disease with stage 1 through stage 4 chronic kidney disease, or unspecified chronic kidney disease (principal); N18.9 Chronic kidney disease, unspecified; J44.9 Chronic obstructive pulmonary disease, unspecified; R73.03 Prediabetes; E78.00 Pure hypercholesterolemia, unspecified
CPT/HCPCS: 36415; 80053; 80061; 83036; 85025

== ENCOUNTER 2024-03-26 08:26 | Outpatient (AMB) | payer MEDICARE, SELFPAY ==
--- NOTE | 2024-03-26 08:32 | A.OFFVIS_ITS ---
Intake Visit Reasons: 1Y Follow Up(CT at [facility]) Intake Note: Patient is present for CT Follow Up Urology Med: None Antibiotic Allergy: None Blood Thinner: None Patient has CT Abdomen/Pelvis 03/21/24 Senior Interaction Designer Required: No Accompanied by: Self / Same As Patient Allergies latex Allergy (Verified 03/26/24 08:37) SKIN ITTIRATION/REDNESS HPI Comments Details: Vale is very pleasant female. She is seen for the following urologic conditions - complex cyst - nephrolithiasis - bladder instability Discussed findings Stable complex cyst Did have recent diagnosis of osteopenia Is taking Citracal and very active with [email or web address] classes New issue bladder instability Bathroom planning Urge and frequency at home Minimal incontinence Given age of 76 Trial Myrbetriq Nephrolithiasis Did pass stone after last visit They are small Discussed having combination Naprosyn, Flomax, prednisone to self start Complex renal cyst Longstanding Followed with serial imaging Ultrasound - 12/01 left 2.5 cm complex cyst with thin wall, question of 3 mm stone bilateral - 01/02 left 2.7 cm complex cyst with thin wall question, right 1.5 cm - 04/05 CT scan nephrolithiasis, cyst Bosniak 1 - 04/06 CT - bilateral cysts, small stones left side Follow p.r.n. [facility] Medical History (Updated 03/26/24 @ 09:10 by Yasir Beaulieu MD) Anxiety Hyperlipidemia GERD (gastroesophageal reflux disease) HTN (hypertension) Facial basal cell cancer Cataracts, bilateral History of skin cancer Renal cyst, acquired Renal stones Surgical History Status post Mohs surgery History of cataract surgery H/O lithotripsy H/O tubal ligation History of biopsy Social History Patient Tobacco Use Status: Former Tobacco user Tobacco use type: Cigarette Cigarette Packs Per Day: 1.5 Cigarettes Per Day: 30.0 Years Smoked: 35 Review of Systems Const Denies chills and Denies fever(s) Card Reports no additional complaints and Denies syncope Resp Denies cough GI Denies abdominal pain and Denies heartburn Reports as per HPI and Denies change in libido Neuro Denies syncope Psych Denies change in libido Endo Denies change in libido Physical Exam Const General: cooperative, healthy appearing, comfortable and no acute distress Orientation/consciousness: patient oriented x3 HEENT Face and sinus: Yes normal facial exam Mouth: moist mucous membranes Neck Neck: Yes normal visual inspection, Yes full ROM and Yes trachea midline Chest Chest palpation & inspection: normal inspection of the chest Resp Effort & Inspection: normal respiratory effort, able to speak in complete sentences and no respiratory distress GI Inspection: Yes normal to inspection Back/Spine/Pelvis Cervical Spine: normal cervical lordosis Thoracic/Lumbar Spine: thoracic and lumbar spine normal to inspection Skin General skin exam: no rashes or lesions noted Neuro General: patient oriented x3, gait normal, tone normal and moves all extremities Extrem General: Yes normal to inspection and Yes capillary refill normal Assessment & Plan Assessment & Plan (1) Bladder instability: Code(s): N32.89 - Other specified disorders of bladder Category: Medical (2) Renal stones: Code(s): N20.0 - Calculus of kidney Category: Medical (3) Kidney cysts: Code(s): N28.1 - Cyst of kidney, acquired Category: Medical Plan Trial Myrbetriq Medications: New mirabegron ER (Myrbetriq) 25 mg PO DAILY 30 days 30 tabs 1RF N30.10 - Interst itial cystitis (chronic) without hematuria, N32.81 - Overactive bladder, N32.89 - Other specified disorders of bladder, R35.1 - Nocturia, R39.15 - Urgency of urination Patient Instructions: Imaging studies, laboratory and physical exam results were discussed and reviewed in detail. No major barriers to patient understanding were identified. An opportunity to ask questions regarding the treatment plan was provided. All questions were answered. The patient expressed understanding and agreement with the above treatment plan. The patient is aware they should contact our office by phone for worsening of their current condition or the appearance of new urologic symptoms. Compliance is encouraged with any medications and followup testing that is ordered. It is a privilege to participate in the urologic care of your patient. If you have any questions or concerns regarding treatment for the above conditions, or other urologic issues, please do not hesitate to contact me. The office telephone contact is [phone]. This note is constructed using voice recognition software. While every effort has been made to ensure accuracy transfer and pumphouse operator errors may have been included. Yours sincerely, Dr Yasir Beaulieu MD, [facility] - Urology Providers of Expert, Compassionate Care for the Genitourinary System Coding Level of Care Code Est Pt Level 4 (25858) Diagnoses Bladder instability N32.89 Renal stones N20.0 Kidney cysts N28.1
== END 2024-03-26 09:12 | disposition home or self-care (01) ==
PROVIDERS: PCP Internal Medicine; Visit Provider Urology
DX: N32.89 Other specified disorders of bladder (principal); N20.0 Calculus of kidney; N28.1 Cyst of kidney, acquired
CPT/HCPCS: 99214

== ENCOUNTER → 2024-03-26 08:26 | Outpatient (BNVA) | payer MEDICARE, SELFPAY | PROVIDERS: PCP Internal Medicine; Visit Provider Urology | DX: N32.89 Other specified disorders of bladder (principal); N20.0 Calculus of kidney; N28.1 Cyst of kidney, acquired | CPT/HCPCS: 99212 ==

== ENCOUNTER 2024-04-15 08:08 | Outpatient (REF) | payer MEDICARE, SELFPAY ==
--- NOTE | ~2024-04-15 | MM_ITS ---
EXAMINATION: MM SCREENING DIGITAL BREAST TOMOSYNTHESIS, BILATERAL CLINICAL INFORMATION: Screening. Asymptomatic. COMPARISON: Mammography: Comparison is made with available priors TECHNIQUE: Digital breast mammography with tomosynthesis is performed in both the craniocaudal and mediolateral oblique views along with computer-aided detection (CAD). FINDINGS: There are scattered areas of fibroglandular density (ACR BI-RADS breast composition Category b). There are no significant masses, abnormal calcifications, or other abnormalities. MM/MM tomosynthesis screening BI IMPRESSION: No mammographic evidence of malignancy. ASSESSMENT: BI-RADS BI-RADS 1 - Negative RECOMMENDATION: Routine annual mammography screening. 1 year F/U This examination should not preclude the clinical evaluation of a suspicious palpable abnormality. This patient's information was entered into a reminder system with a target due date for their next mammogram. Electronically signed by: Shahla Pollard DO 04/21/2024 01:13 PM JF
== END 2024-04-15 08:09 | disposition home or self-care (01) ==
LOC: HO.MAMMO 08:08
PROVIDERS: PCP Internal Medicine; Visit Provider Internal Medicine
DX: Z12.31 Encounter for screening mammogram for malignant neoplasm of breast (principal)
CPT/HCPCS: 77063; 77067

== ENCOUNTER → 2024-04-15 08:30 | Outpatient (BNV) | payer MEDICARE, SELFPAY | PROVIDERS: PCP Internal Medicine; Visit Provider Internal Medicine | DX: Z12.31 Encounter for screening mammogram for malignant neoplasm of breast (principal) | CPT/HCPCS: 77063; 77067 ==

== ENCOUNTER 2024-05-30 09:45 | Outpatient (AMB) | payer MEDICARE, SELFPAY ==
--- NOTE | 2024-05-30 09:46 | A.OFFVIS_ITS ---
Intake Visit Reasons: 2M Med Review(Myrbetriq) Intake Note: Patient is present for 2M MED REVIEW Urology Medication:MYRBETRIQ Antibiotic Allergy:NONE Blood Thinner:NONE Child Psychology Teacher Required: No Allergies latex Allergy (Verified 05/30/24 09:47) SKIN ITTIRATION/REDNESS HPI Comments Details: Vale is very pleasant female. She is seen for the following urologic conditions - complex cyst - nephrolithiasis - bladder instability Telemedicine Evaluation 15 min Consultation [facility]Share Mily Video Trialed Myrbetriq Had some improvement Does have high co-pay 85 dollars per month Did notice improvement was trying pelvic floor exercises Would like to continue to pursue this Did have recent diagnosis of osteopenia Is taking Citracal and very active with [employer] classes New issue bladder instability Bathroom planning Urge and frequency at home Minimal incontinence Given age of 76 - Trial Myrbetriq Nephrolithiasis Did pass stone after last visit They are small Discussed having combination Naprosyn, Flomax, prednisone to self start Complex renal cyst Longstanding Followed with serial imaging Ultrasound - 12/01 left 2.5 cm complex cyst with thin wall, question of 3 mm stone bilateral - 01/02 left 2.7 cm complex cyst with thin wall question, right 1.5 cm - 04/05 CT scan nephrolithiasis, cyst Bosniak 1 - 04/06 CT - bilateral cysts, small stones left side Follow p.r.n. [facility] Medical History (Updated 03/26/24 @ 09:10 by Yasir Beaulieu MD) Anxiety Hyperlipidemia GERD (gastroesophageal reflux disease) HTN (hypertension) Facial basal cell cancer Cataracts, bilateral History of skin cancer Renal cyst, acquired Renal stones Surgical History Status post Mohs surgery History of cataract surgery H/O lithotripsy H/O tubal ligation History of biopsy Social History Patient Tobacco Use Status: Former Tobacco user Tobacco use type: Cigarette Cigarette Packs Per Day: 1.5 Cigarettes Per Day: 30.0 Years Smoked: 35 Review of Systems Const All systems reviewed & are unremarkable except as noted in HPI and below Reports no additional complaints Resp Reports no additional complaints GI Reports no additional complaints Reports as per HPI Musc Reports no additional complaints Physical Exam Telemedicine evaluation Appropriate responses Regular breathing rate and rhythm HEENT Head: Yes normal to inspection Ears: hearing grossly normal bilaterally Eyes General: appearance normal, both eyes and all related structures Neck Neck: Yes normal visual inspection Chest Chest palpation & inspection: normal inspection of the chest Resp Effort & Inspection: normal respiratory effort and able to speak in complete sentences Telehealth Telehealth Telehealth Platform: [employer] Location of provider rendering services: practice address Location of patient: address on file Patient Identification confirmed using: Name, : Yes Telehealth method: video Patient verbally consented to treatment: Yes Patient verbally consented to billing insurance company: Yes Patient informed of any privacy concerns related to visit: Yes Minutes spent on Phone/Video with Pt.: 15 Assessment & Plan Assessment & Plan (1) Kidney cysts: Code(s): N28.1 - Cyst of kidney, acquired Category: Medical (2) Bladder instability: Code(s): N32.89 - Other specified disorders of bladder Category: Medical Plan Six-month follow-up office Patient Instructions: Imaging studies, laboratory and physical exam results were discussed and reviewed in detail. No major barriers to patient understanding were identified. An opportunity to ask questions regarding the treatment plan was provided. All questions were answered. The patient expressed understanding and agreement with the above treatment plan. The patient is aware they should contact our office by phone for worsening of their current condition or the appearance of new urologic symptoms. Compliance is encouraged with any medications and followup testing that is ordered. It is a privilege to participate in the urologic care of your patient. If you have any questions or concerns regarding treatment for the above conditions, or other urologic issues, please do not hesitate to contact me. The office telephone contact is [phone]. This note is constructed using voice recognition software. While every effort has been made to ensure accuracy senior tax accountant errors may have been included. Yours sincerely, Dr Yasir Beaulieu MD, [facility] - Urology Providers of Expert, Compassionate Care for the Genitourinary System Coding Level of Care Code Tele Est Pt Level 3 (89675) Diagnoses Kidney cysts N28.1 Bladder instability N32.89
== END 2024-05-30 11:51 | disposition home or self-care (01) ==
LOC: HO.HUSH 09:45
PROVIDERS: PCP Internal Medicine; Visit Provider Urology
DX: N28.1 Cyst of kidney, acquired (principal); N32.89 Other specified disorders of bladder
CPT/HCPCS: 99213

== ENCOUNTER → 2024-05-30 09:45 | Outpatient (BNVA) | payer MEDICARE, SELFPAY | PROVIDERS: PCP Internal Medicine; Visit Provider Urology ==

== ENCOUNTER 2024-06-05 06:32 | Outpatient (REF) | payer MEDICARE, SELFPAY ==
[2024-06-05 06:40] LABS: MANUAL DIFF FLAG NO
[2024-06-05 07:33] LABS: Basophils Percent Auto 0.6 % (0-2); Eosinophils Absolute Auto 0.2 X10*3/uL (0.0-0.4); Eosinophils Percent Auto 2.8 % (0-4); Hematocrit 41.4 % (37.0-47.0); Hemoglobin 13.9 g/dl (12.0-16.0); Imm Gran Abs Auto 0.02 X10*3/uL (0.00-0.03); Imm Gran Pct Auto 0.3 % (0.0-0.4); Lymphocytes Absolute Auto 1.8 X10*3/uL (1.2-4.9); Lymphocytes Percent Auto 26.1 % (20-40); Mean Corpuscular HGB Conc 33.6 g/dl (31.0-35.0); Mean Corpuscular Hemoglobin 31.4 pg (27.0-33.0); Mean Corpuscular Volume 93.7 fL (80.0-98.0); Monocytes Absolute Auto 0.6 X10*3/uL (0.1-1.2); Monocytes Percent Auto 8.9 % (2-11); Neutrophils Absolute Auto 4.2 x10*3/uL (2.0-8.3); Neutrophils Percent Auto 61.3 % (45-73); Platelet Count 250 X10*3/uL (160-400); Red Blood Count 4.42 X10*6/uL (4.20-5.50); Red Cell Distribution Width 12.4 % (11.0-16.0); White Blood Count 6.9 X10*3/uL (4.8-10.8)
== END 2024-06-05 06:33 | disposition home or self-care (01) ==
LOC: HO.LAB 06:32
PROVIDERS: PCP Internal Medicine; Visit Provider Internal Medicine
DX: I12.9 Hypertensive chronic kidney disease with stage 1 through stage 4 chronic kidney disease, or unspecified chronic kidney disease (principal); N18.9 Chronic kidney disease, unspecified; E78.00 Pure hypercholesterolemia, unspecified; J44.9 Chronic obstructive pulmonary disease, unspecified; M81.0 Age-related osteoporosis without current pathological fracture
CPT/HCPCS: 36415; 80053; 80061; 82306; 84443; 85025

== ENCOUNTER 2024-07-02 06:13 | Day surgery (SDC) | payer MEDICARE, SELFPAY ==
--- OUTSIDE RECORDS SUMMARY | 2024-04-25 07:42 | XMS_ITS ---
Author Organization [facility] Address [address] [place] [address] Care Team Providers Care Disaster Recovery Coordinator Name Role Phone Tee Ortega MD Primary Care Provider Ran Hodge Unavailable [phone] ALLERGIES No Known Allergies REASON FOR VISIT Patient presents today for a COLON SCREENING MEDICATIONS Medication SIG (Take, Route, Frequency, Duration) Notes Start Date End Date Status Vitamin D3 Active LORazepam 0.5 MG Oral for 30 A ctive Omeprazole 20 MG Oral for 90 A ctive Atorvastatin Calcium 10 MG TAKE ONE TABL ET BY MOUTH EVERY DAY Oral for 90 Active amLODIPine Besylate 2.5 MG Oral for 90 Active Multivitamin Active Metamucil Active SOCIAL HISTORY Tobacco Use: Social History Observation Description Date Details (start date - stop date) Former Smoker NA - NA Sex Assigned At : Social History Observation Description Sex Assigned At Unknown Tobacco Use/Smoking Question Answer Notes Patient is a former smoker How long has it been since you last smoked? > 10 years Alcohol Screen Question Answer Notes Did you have a drink containing alcohol in the p ast year? No Points 0 Interpretation Negative PROBLEMS Problem Type ICD Code Onset Dates Problem Status W/U Status Risk SNOMED Code Notes Problem Constipation (K59.00) Active confirmed Constipation (99460462) Problem Encounter for screening for malignant neoplasm of colon (Z12.11) Active confirmed Screening for malignant neoplasm of colon (978572054) Problem Tubular adenoma of colon (D12.6) Active confirmed Tubular adan noma of colon (412343756) VITAL SIGNS BMI 28.16 kg/m2 03/11/2024 Blood pressure systolic 120 mm Hg 03/11/20 24 Blood pressure diastolic 80 mm Hg 024 Height 62 in 03/11/2024 Weight 154 lbs 03/11/2024 Encounters Encounter Location Date Provider Diagnosis [facility] [address] [place] [address] 03/11/2024 Ran Maldonado Constipation K59.00 ; Encounter for screening for malignant neoplasm of colon Z12.11 and Tubular adenoma of colon D12.6 ASSESSMENTS Encounter Date Diagnosis Assessment Notes Treatment Notes Treatment Clinical Notes 03/11/2024 Constipation (ICD-10 - K59.00) Drink a lot of water with the Metamucil and eat a healthy, high fiber diet with fluids. Use Miralax as needed. Try to get me a copy of your upcoming CT scan 03/11/2024 Encounter for screening for malignant neoplasm of colon (ICD-10 - Z12.11) 03/11/2024 Tubular adenoma of colon (ICD-10 - D12.6) PLAN OF TREATMENT Treatment Notes Assessment Notes Constipation Drink a lot of water with the Metamucil and eat a healthy, high fiber diet with fluids. Use Miralax as needed. Try to get me a copy of your upcoming CT scan Future Test Test Name Order Date COLONOSCOPY 03/11/2024 Next Appt Details Follow Up: prn, Reason: Provider Name:aRn Maldonado , 07/02/2024 08:30:00 AM, [address] [place] [address] , [place], [place], [id number], Progress Notes * Examination Category Sub-Category Detail Notes General Examination GENERAL APPEARANCE: pleasant , well nourished, well developed, in no acute distress HEAD: EYES: sclera non-icteric EARS: NOSE: THROAT: NECK/THYROID: no cervical lymphade nopathy, neck supple HEART: S1, S2 normal CHEST: LUNGS: clear to auscultatio n bilaterally ABDOMEN: normal bowel sounds, no guarding or rigidity, no guarding or rigidity, no masses palpable, soft, nontender, nondistended NEUROLOGIC: alert and oriented SKIN: nonjaundiced, no spi omar angiomata EXTREMITIES: no edema PERIPHERAL PULSES: BACK: BREASTS: MUSCULOSKELETAL: MALE GENITOURINARY: LYMPH NODES: RECTAL EXAM: FEMALE GENITOURINARY: ORAL CAVITY: mucosa moist
--- OUTSIDE RECORDS SUMMARY | 2024-04-25 07:43 | XMS_ITS | Patient Health Record ---
Author Organization [facility] Address [address] [place] [address] Care Team Providers Care Frame Bander Name Role Phone Tee Ortega MD Primary Care Provider Juanita bruce Ran Maldonado Unavailable [phone] ALLERGIES No Known Allergies RESULTS Component Value Reference Range Notes MAMMOGRAM DIGITAL BILATERAL SCREEN Reviewed date:03/11/2024 03:31:14 PM Interpretation:Normal Performing Lab: Notes/Report: Normal REASON FOR REFERRAL No Information MEDICATIONS Medication SIG (Take, Route, Frequency, Duration) Notes Start Date End Date Status Vitamin D3 Active Multivitamin Active Metamucil Active LORazepam 0.5 MG Oral for 30 A ctive Omeprazole 20 MG Oral for 90 A ctive Atorvastatin Calcium 10 MG TAKE ONE TABL ET BY MOUTH EVERY DAY Oral for 90 Active amLODIPine Besylate 2.5 MG Oral for 90 Active SOCIAL HISTORY Tobacco Use: Social History [...] W/U Status Risk SNOMED Code Notes Problem Positive colorectal cancer screening using Cologuard test (R19.5) Active confirmed 164144714 Problem Diverticulosis of large intestine without perforation or abscess without bleeding (K57.30) Active confirmed Diverticul ar disease of colon (460669421) Problem Constipation (K59.00) Active confirmed Constipation (52895679) Problem Encounter for screening for malignant neoplasm of colon (Z12.11) Active confirmed Screening for malignant neoplasm of colon (902299437) Problem Tubular adenoma of colon (D12.6) Active confirmed Tubular adenom a of colon (401856657) VITAL SIGNS Blood pressure diastolic 80 mm Hg 03/11/2024 Height 62 in 03/11/2024 Blood pressure systolic 120 mm Hg 03/11/2024 Weight 154 lbs 03/11/2024 BMI 28.16 kg/m2 03/11/2024 Encounters Encounter Location Date Provider Diagnosis [facility] [address] [place] [address] 03/11/2024 Ran Maldonado Constipation K59.00 ; Encounter for screening for malignant neoplasm of colon Z12.11 and Tubular adenoma of colon D12.6 ASSESSMENTS Encounter Date Diagnosis Assessment Notes Treatment Notes Treatment Clinical Notes 03/11/2024 Encounter for screening for malignant neoplasm of colon (ICD-10 - Z12.11) 03/11/2024 Constipation (ICD-10 - K59.00) Drink a lot of water with the Metamucil and eat a healthy, high fiber diet with fluids. Use Miralax as needed. Try to get me a copy of your upcoming CT scan 03/11/2024 Tubular adenoma of colon (ICD-10 - D12.6) PLAN OF TREATMENT Future Test Test Name Order Date COLONOSCOPY 09/19/2022 COLONOSCOPY 03/11/2024 Next Appt Details Provider Name:Ran Maldonado , 07/02/2024 08:30:00 AM, [address] [place] [address] , [place], [place], [id number], Insurance Providers Payer Name Payer Address Payer Phone Subscriber Number Group Number Insured Name Patient Relationship to Insured Coverage Start Date Coverage End Date [facility] [address] [place] [address] [id number] JANESSA MENDOZA Self - patient is the insured MEDICAL (GENERAL) HISTORY Medical History History ICD Code Kidney stones Hypertension GERD Hyperlipidemia Denies FL,DM,CVA,Lung disease,renal dise ase + Cologuard test early 2022 Colonoscopy 10/2022 with the removal of 2 flat tubular adenomas from the cecum Surgical History Surgery Date(Month/Year) Biopsy of lesion on left leg 09/13/2022---going back to Medical Information Officer for followup Basal cell cancer on forehead Tubal ligation Cataracts 2014
--- OUTSIDE RECORDS SUMMARY | 2024-04-25 07:43 | XMS_ITS ---
Author Organization [facility] Address [address] [place] [address] Care Team Providers Care Communications Engineering Technician Name Role Phone Tee Ortega MD Primary Care Provider Unavaila Ran Simms Unavailable [phone] REASON FOR VISIT looking for results Encounters Encounter Location Date Provider Diagnosis [facility] [address] [place] [address] 10/26/2022 Ran Maldonado PLAN OF TREATMENT Next Appt Details Provider Name:Ran Maldonado , 07/02/2024 08:30:00 AM, [address] [facility] , [place], [place], [phone],
[2024-06-27 11:55] VITALS: BMI 28.2
[2024-07-02 06:39] VITALS: BMI 28.0
--- NOTE | 2024-07-02 07:16 | P.CONAN_ITS ---
[facility] Active Problems Active Problems: All Active Problems Bladder instability (Acute) Kidney cysts (Acute) Renal stones (Acute) Past Medical History Medical History Anxiety Hyperlipidemia GERD (gastroesophageal reflux disease) HTN (hypertension) Facial basal cell cancer Cataracts, bilateral History of skin cancer Renal cyst, acquired Renal stones Surgical History Surgical History H/O adenoidectomy Hx of tonsillectomy H/O colonoscopy Status post Mohs surgery History of cataract surgery H/O lithotripsy H/O tubal ligation History of biopsy History of Problems with Anesthesia: No Social History Social History Household Members: Spouse Patient Tobacco Use Status: Former Tobacco user Tobacco use type: Cigarette Cigarette Packs Per Day: 1.5 Cigarettes Per Day: 30.0 Years Smoked: 35 Use of substances other than those prescribed or required for medical reasons: No Are you DNR?: No Advance Directives: No Advance Directives Information Provided: Yes Recently lost weight without trying: No Nutrition Risks: No Nutritional Risk Meds Allergies Allergy/AdvReac Type Severity Reaction Status Date / Time latex Allergy SKIN Verified 05/30/24 09:47 ITTIRATION/REDNESS Active Medications: Current Medications Lactated Ringer's (Lr) 1,000 mls @ 80 mls/hr IVCONT .[id number] LORI Sodium Biphosphate/Sodium Phosphate (Sodium Phosphate,Dorado-Dibasic 133 Ml Enema) 133 ml [place] ONCE PRN PRN Reason: Poor Colonoscopy Prep Results Home Medications ?Medication ?Instructions ?Recorded ?Confirmed ?Last Taken ?Type atorvastatin 10 mg tablet 10 mg PO DAILY 01/27/21 06/27/24 Unknown History lorazepam 0.5 mg tablet 0.5 mg PO DAILY PRN Anxiety 01/27/21 06/27/24 Unknown History amlodipine 2.5 mg tablet 2.5 mg PO DAILY 03/20/22 06/27/24 07/02/24 History omeprazole 20 mg capsule,delayed 20 mg PO DAILY 03/20/22 06/27/24 07/02/24 History release Exam Height,Weight and Vital Signs: Height 5 ft 2 in Weight 69.456 kg Airway Mallampati Class: II (edentulous) TM Dist: >3cm Neck ROM: Full Denture: Upper and Lower Loose/Missing/Broken Teeth: Yes, Upper and Lower Heart: RRR Lungs: CTA Assessment and Plan Assessment Anesthesia Assessment: Anesthesia Plan Discussed and Chart Reviewed Final Anesthetic Review History of Problems with Anesthesia: No NPO: Yes ASA Class: II Final Preanesthetic Review: Meds/Allgs Chart Reviewed, Consent Obtained/Reviewed and Anes Risks/Benef Reviewed Patient Risk: Low Procedure Risk: Low Anesthetic Plan Anesthetic Plan: MAC: Disposition: Standard PACU
[2024-07-02 08:28] VITALS: BP 101/52; PULSE 86; RESP 18; TEMP 36.9; O2SAT 100
--- NOTE | 2024-07-02 08:34 | P.BOP_ITS ---
Brief Operative Note Date of Service: 07/02/24 Pre-op diagnosis: Screening Post-op diagnosis: other (Cecal polyp, Retained Resolution clip in the cecum) Procedure: Colonoscopy to the cecum with hot snare polypectomy x 1 Surgeon: Ran Maldonado MD Anesthesia: MAC Was an Relationship Executive used for this Procedure?: No Estimated blood loss (mL): 0 Pathology: other (Cecal polyp) Condition: stable Disposition: PACU
[2024-07-02 08:43] VITALS: BP 120/62; PULSE 74; RESP 16; O2SAT 95
--- NOTE | 2024-07-02 08:48 | OP_ITS ---
DATE OF SERVICE: 07/02/2024 SURGEON: Ran Maldonado MD INDICATIONS: The patient presents for followup of personal history of colon polyps and colorectal cancer screening. Full consent was obtained from her for this, including risks of bleeding and perforation. PREOPERATIVE DIAGNOSIS: POSTOPERATIVE DIAGNOSIS: PROCEDURE PERFORMED: Colonoscopy to the cecum with hot snare polypectomy x 1. ESTIMATED BLOOD LOSS: COMPLICATIONS: ANESTHESIA: Medication use; monitored anesthesia care. ASSISTANTS: SPECIMENS: PREOPERATIVE DIAGNOSES: Colorectal cancer screening and personal history of colon polyps. POSTOPERATIVE DIAGNOSES: Colorectal cancer screening and personal history of colon polyps, colon polyp, diverticulosis, and internal hemorrhoids. DESCRIPTION OF PROCEDURE: The patient was placed in the left lateral decubitus position. The digital rectal exam revealed no abnormalities. The Olympus videopediatric colonoscope was entered into the rectum and advanced to the cecum. Advancement past the sigmoid colon was somewhat difficult. However, once in the cecum, I did identify cecal pouch with appendiceal orifice. Alongside the appendiceal orifice was a retained clip, that had been placed back in 2022. Adjacent to the clip was an approximately 8-10 mm polypoid area, which appeared to be grossly adenomatous. This was removed by hot snare polypectomy and recovered by suction. The polypectomy site appeared clean, without any sign of residual polyp nor bleeding. The tissue that the clip was still attached to did appear edematous but I do not think represented polyp tissue. Therefore, I did not attempt to remove it. The remainder of the cecum appeared normal. The scope was then slowly withdrawn assessing all mucosal surfaces carefully. The ileocecal valve appeared normal. Preparation was excellent. I did not visualize any other polyps, other than less than 5 mm hyperplastic appearing polyps in the sigmoid colon and rectum, which were not biopsied nor removed. I did not visualize any sign of colitis nor angiodysplasia. There was a mild amount of sigmoid diverticulosis. In the rectum, scope was retroflexed visualizing small internal hemorrhoids, but no other pathology. The rectal mucosa appeared normal. The scope was straightened and withdrawn from the patient. She tolerated the procedure well and was returned to the recovery area in stable condition. IMPRESSION: 1. Residual cecal polyp removed with hot snare polypectomy. 2. Retained clip in cecum from 2022. 3. Diverticulosis. 4. Internal hemorrhoids. PLAN: The results of the pathology will be checked. Given this finding and her age, I would be inclined to hold off on any further screening colonoscopies at this point. She was advised not to use any aspirin or NSAIDs for least 1 week. She will otherwise see me again on a p.r.n. basis. This has been discussed with her . MD KAROLINE Bey/HUGO / [id number] MTDD
[2024-07-02 08:58] VITALS: BP 130/68; PULSE 68; RESP 16; TEMP 36.5; O2SAT 100
== END 2024-07-02 10:00 | disposition home or self-care (01) ==
PROVIDERS: PCP Internal Medicine; Visit Provider Internal Medicine
PROC: 0DJD8ZZ Inspection of Lower Intestinal Tract, Via Natural or Artificial Opening Endoscopic (ICD-10-PCS; CPT 45378; principal; 2024-07-02 07:30)
DX: Z12.11 Encounter for screening for malignant neoplasm of colon (principal); Z86.0101 Personal history of adenomatous and serrated colon polyps; D12.0 Benign neoplasm of cecum; K57.30 Diverticulosis of large intestine without perforation or abscess without bleeding; K64.8 Other hemorrhoids; K59.00 Constipation, unspecified; K21.9 Gastro-esophageal reflux disease without esophagitis; I10 Essential (primary) hypertension; E78.5 Hyperlipidemia, unspecified; N28.1 Cyst of kidney, acquired; F41.9 Anxiety disorder, unspecified; Z87.442 Personal history of urinary calculi; Z85.828 Personal history of other malignant neoplasm of skin; Z79.899 Other long term (current) drug therapy; Z91.040 Latex allergy status; Z98.890 Other specified postprocedural states; Z87.891 Personal history of nicotine dependence
CPT/HCPCS: 45385; 88305; J2003; J2405; J2704; J2765

== ENCOUNTER 2024-09-01 09:01 | Emergency (ER) | payer MEDICARE, SELFPAY ==
[2024-09-01 09:20] VITALS: BP 172/71; PULSE 79; RESP 18; TEMP 36.5; O2SAT 97; BMI 28.3
--- NOTE | 2024-09-01 10:00 | ED_ITS ---
HPI - General Adult General Chief complaint: General Medical Stated complaint: rash Time Seen by Provider: 09/01/24 09:54 Source: patient and RN notes reviewed Mode of arrival: ambulatory Limitations: no limitations History of Present Illness ED Provider: Stacey Low PA-C HPI narrative: This is a 71 year old female, with a history of anxiety, hyperlipidemia, GERD, hypertension, who presents emergency department for evaluation of rash. Patient reports that over the last week she has had a rash. She states that the rash started on her chest, progressed to her back, arms and then onto her legs. She states that the rashes not necessarily itchy however does have some numbness sensation. She reports that she switch body soap and thought that this was contributing to her symptoms however states that she discontinue this in the rash has since progressed. She has washed all of the clothing, bedding, and towels that was exposed to this body wash. She denies any fevers, chills, chest pain, shortness for breath, abdominal pain, nausea, vomiting or diarrhea. She was otherwise feeling well. She has an appointment with a human development professor on Sunday. Denies taking any medications at home to treat her current symptoms. No other complaints or concerns at this time. MD complaint: Rash Onset (ago): week(s) Relieving factors: none Exacerbating factors: none Associated symptoms: denies other symptoms Treatments prior to arrival: none Related Data Home Medications ?Medication ?Instructions ?Recorded ?Confirmed atorvastatin 10 mg tablet 10 mg PO DAILY 01/27/21 06/27/24 lorazepam 0.5 mg tablet 0.5 mg PO DAILY PRN Anxiety 01/27/21 06/27/24 amlodipine 2.5 mg tablet 2.5 mg PO DAILY 03/20/22 06/27/24 Previous Rx's ?Medication ?Instructions ?Recorded mirabegron 25 mg tablet,extended 25 mg PO DAILY 30 days #30 tabs 03/26/24 release 24 hr (Myrbetriq) omeprazole 20 mg capsule,delayed 20 mg PO DAILY #90 caps 08/23/24 release prednisone 20 mg tablet 20 mg PO DAILY 5 days #5 tabs 09/01/24 Allergies Allergy/AdvReac Type Severity Reaction Status Date / Time latex Allergy SKIN Verified 09/01/24 09:26 ITTIRATION/REDNESS Review of Systems Review of Systems: Yes all other systems are reviewed and are negative Constitutional: Constitutional: Reports as per [facility] Past Medical History Attestation statement: The following information was validated with the patient. Medical History Anxiety Hyperlipidemia GERD (gastroesophageal reflux disease) HTN (hypertension) Facial basal cell cancer Cataracts, bilateral History of skin cancer Renal cyst, acquired Renal stones Surgical History H/O adenoidectomy Hx of tonsillectomy H/O colonoscopy Status post Mohs surgery History of cataract surgery H/O lithotripsy H/O tubal ligation History of biopsy Social History Social History Household Members: Spouse Patient Tobacco Use Status: Former Tobacco user Tobacco use type: Cigarette Cigarette Packs Per Day: 1.5 Cigarettes Per Day: 30.0 Years Smoked: 35 Advance Directives: Yes Advance Directives Information Provided: No Advance Directives on File: No Physical Exam ED Vital Signs: Vital Signs - 24 hr 09/01/24 09:20 Temperature 97.7 F Pulse Rate 79 Respiratory Rate 18 Blood Pressure 172/71 H Pulse Oximetry 97 Oxygen Delivery Method Room Air BMI result Body Mass Index 28.3 Const General: cooperative, comfortable and no acute distress Orientation/consciousness: patient oriented x3 Limitations: no limitations HENMT Head: Yes normal to inspection, Yes normocephalic and Yes atraumatic Ears: hearing grossly normal bilaterally General nose exam: Normal external nose present Face and sinus: Yes normal facial exam Mouth: Normal oral and palatal mucosa present, oropharynx normal and moist mucous membranes Throat: Yes posterior oropharynx normal Eyes General: appearance normal, both eyes and all related structures Eyelids: Yes eyelids normal Conjunctivae: conjunctivae normal Sclerae: sclerae normal Pupils: Equal, round and reactive pupils present EOM: EOMs intact bilaterally Neck Neck: Yes normal visual inspection, Yes full ROM and Yes no lymphadenopathy Lymphatic: no lymphadenopathy noted Chest Chest palpation & inspection: normal inspection of the chest Resp Effort & Inspection: normal respiratory effort and able to speak in complete sentences Auscultation: clear to auscultation bilaterally, no crackles, no rales, no rhonchi and no wheezes Cardio Rate: regular rate Rhythm: regular rhythm Heart sounds: S1 normal heart sound present and S2 normal heart sound present GI Inspection: Yes normal to inspection Skin Other: Scattered macules, dry in nature, they do sony, noted to bilateral arms, chest, back, and on the legs. No surrounding erythema. No drainage. Neuro General: patient oriented x3 and moves all extremities Cranial nerves: Yes Equal, round and reactive pupils present Extrem General: Yes normal to inspection Right upper extremity: normal to inspection Left upper extremity: normal to inspection Right lower extremity: normal to inspection Left lower extremity: normal to inspection Medical Decision Making Medical Decision Making MDM Narrative: This is a 78-year-old female who presents emergency department with concerns for rash. On arrival, vital signs reveal slightly hypertensive at 172/71. Patient has had a scattered rash for the last week. Exam findings with crusting macules noted on bilateral arms, chest, back, and legs. Less than 15 noted macules throughout body. Differential diagnoses include contact dermatitis, viral exanthem, herpes zoster. Given that rash crosses multiple dermatomes, this is unlikely. There is no associated cellulitis or pain associated with the rash. Will treat with low-dose prednisone. She has follow-up with her human development professor on Sunday. She was given strict return precautions. She understands and agrees with plan. Patient stable for discharge Differential Diagnosis Differential Diagnoses: The differential diagnosis associated with the presentation includes See above Discharge Plan Discharge Clinical Impression: Rash Patient Disposition: Home, Self-Care Instructions: Contact Dermatitis (ED), Acute Rash (ED) Additional Instructions: You were seen in the emergency department due to a rash. It was unclear what is causing you to have this rash, this may be allergic in nature. Take prescribed prednisone course as directed. This helps decrease the inflammatory process. Please follow-up with the human development professor as scheduled for Sunday. Keep an eye on your symptoms, if any new or worsening symptoms occur including but not limited to severe chest pain, shortness of breath, difficulty swallowing, please seek emergent care. Prescriptions: New prednisone 20 mg tablet 20 mg PO DAILY 5 Days Qty: 5 0RF No Action omeprazole 20 mg capsule,delayed release(DR/EC) 20 mg PO DAILY Qty: 90 3RF atorvastatin 10 mg tablet 10 mg PO DAILY lorazepam 0.5 mg tablet 0.5 mg PO DAILY PRN (Reason: Anxiety) amlodipine 2.5 mg tablet 2.5 mg PO DAILY mirabegron [Myrbetriq] 25 mg tablet extended release 24 hr 25 mg PO DAILY 30 Days Qty: 30 1RF Print Language: Ugandan
--- OUTSIDE RECORDS SUMMARY | 2024-09-01 10:01 | XMS_ITS ---
Author Organization [facility] Address [address] [place] [address] Care Team Providers Care Instrument Fitter Name Role Phone Tee Ortega MD Primary Care Provider Ran Hodge [phone] REASON FOR VISIT screening, tubular adenoma of colon Encounters Encounter Location Date Provider [place] [facility] [place] [address], [place] [id number] [place]/02/2024 Ran Maldonado Colon cancer scree rosa [...] Notes * JANESSA MENDOZADOB:1945 (78 yo F)Acc No.[id number]:07/02/2024 COLON WITH MAC Patient:?JANESSA MENDOZA Provider:?Ran Maldonado MD :1945???Age:78 Y???Sex:Female D ate:07/02/2024 Address[address] [facility], [id number] Pcp:Tee Ortega MD Subjective: * Chief Complaints: * ???1. Screening, tubular adan noma of colon. * Medical History:? Objective: * Vitals:? Assessment: * Assessment: 1.?Colon cancer screening - Z12.11 (Primary)???2.?Colon polyps - K63.5???3.?Diverticulosis of large intestine without perforation or abscess without bleeding - K57.30???4.?Other hemorrhoids - K64.8??? Plan: * Treatment: * Procedure Codes:?21235 LESIO N REMOVAL COLONOSCOPY, Modifiers: PT * * The named appointment provid er may or may not be the originator of this progress note, and it is not deemed complete until electronically signed by the appointment provider. Sign off status: Pending * Provider:?Ran Maldonado MD Date:? 025 Generated for Rona shah/Mira/eTransmitting on:?09/01/2024 10:01 AM EDT
[2024-09-01 10:25] VITALS: BP 172/71; PULSE 79; RESP 18; TEMP 36.5; O2SAT 97
== END 2024-09-01 10:26 | disposition home or self-care (01) ==
PROVIDERS: Emergency Provider Emergency Medicine; PCP Internal Medicine
DX: R21 Rash and other nonspecific skin eruption (principal); I10 Essential (primary) hypertension; Z79.899 Other long term (current) drug therapy
CPT/HCPCS: 99282; 99283

== ENCOUNTER 2024-09-19 10:07 | Outpatient (AMB) | payer MEDICARE, SELFPAY ==
[2024-09-19 08:41] VITALS: BP 130/80; PULSE 70; TEMP 36.6; O2SAT 98; BMI 28.5
--- NOTE | 2024-09-19 08:41 | A.OFFPC_ITS ---
Vital Signs 09/19/24 08:41 Height 5 ft 2 in Weight 156 lb BMI 28.5 BP 130/80 Blood Pressure Location Lt brachial Position Sitting Pulse 70 Pulse Source Pulse Oximeter Temp 97.8 F Temp Source Axillary Pulse Oximetry (%) 98 Oxygen Delivery Method Room Air Intake Visit Reasons: Routine Pin Worker Required: No Accompanied by: Self / Same As Patient Allergies latex Allergy (Verified 09/19/24 08:42) SKIN ITTIRATION/REDNESS Tobacco use date assessed: 09/19/24 Fall risk assessment: No Falls in past year Last assessed Fall Risk: 09/19/24 Dental Screening Dental Screen Date: 09/19/24 Did you have a dental visit in the last 12 months?: Yes Did you have a dental problem in the last 6 months where you did not have access to dental care?: No HPI HPI Comments History of Present Illness Details The patient is a 78 year old female with a past medical history of prediabetes, hypertension, hyperlipidemia, GERD, COPD, osteopenia, nephrolithiasis, anxiety, colon polyps presenting for follow up. Saw pcp Jun 2024 CV: on lipitor 10mg daily, amlodipine 2.5mg daily. BP is well controlled. Denies chest pain, exertional dyspnea Urology: [place] [facility] [place]. Sees Miriam Nolan Mammo: 04/2024 Colonoscopy 07/02/2024 ROS CONSTITUTIONAL: Denies weight loss, fever and chills. HEENT: Denies changes in vision and hearing. RESPIRATORY: Denies SOB and cough. CV: Denies palpitations and CP GI: Denies abdominal pain, nausea, vomiting and diarrhea. : Denies dysuria and urinary frequency. MSK: Denies new myalgia and joint pain. SKIN: Denies rash and pruritus. NEUROLOGICAL: Denies headache PSYCHIATRIC: Denies recent changes in mood. PHYSICAL EXAM: GENERAL: Alert and oriented x 3. NAD EYES: EOMI. Anicteric. HENT: Moist mucous membranes. No scleral icterus. No cervical lymphadenopathy. LUNGS: Clear to auscultation bilaterally. CARDIOVASCULAR: Regular rate and rhythm. No murmur. No JVD. ABDOMEN: Soft, non-tender +bs EXTREMITIES: No edema. Non-tender. SKIN: No rashes or lesions. Warm. NEUROLOGIC: No focal neurological deficits. CN II-XII grossly intact PSYCHIATRIC: Cooperative. Appropriate mood and affect [facility] Medical History Anxiety Hyperlipidemia GERD (gastroesophageal reflux disease) HTN (hypertension) Facial basal cell cancer Cataracts, bilateral History of skin cancer Renal cyst, acquired Renal stones Surgical History H/O adenoidectomy Hx of tonsillectomy H/O colonoscopy Status post Mohs surgery History of cataract surgery H/O lithotripsy H/O tubal ligation History of biopsy Family History Mother No problems noted. Father No problems noted. Social History Household Members: Spouse Housing: House Patient Tobacco Use Status: Former Tobacco user Tobacco use type: Cigarette Cigarette Packs Per Day: 1.5 Cigarettes Per Day: 30.0 Years Smoked: 35 e-Cigarette/Vaping Use: Former Use service: No Current occupational status: retired Cognitive needs: No Hearing needs: No Vision needs: Yes (reading glasses) Questionnaire PHQ-9 Over the last 2 weeks, how often have you been bothered by any of the following problems? 1. Little interest or pleasure in doing things: not at all 2. Feeling down, depressed, or hopeless: not at all 3. Trouble falling or staying asleep, or sleeping too much: not at all 4. Feeling tired or having little energy: not at all 5. Poor appetite or overeating: not at all 6. Feeling bad about yourself - or that you are a failure or have let yourself or your family down: not at all 7. Trouble concentrating on things, such as reading the newspaper or watching television: not at all 8. Moving or speaking so slowly that other people could have noticed. Or the opposite - being so fidgety or restless that you have been moving around a lot more than usual: not at all 9. Thoughts that you would be better off or of hurting yourself in some way: not at all Total score: 0 Depression Screening Interpretation: Negative Depression Screening Done: Yes 23132 - PHQ-9 Billing: Yes Source: Developed by Drs. Ran Wright, Sary Mccracken, Ryan Chao and colleagues, with an educational terrell from [employer]. Thrive Questionnaire Date Thrive assessed: 09/19/24 I am a: Patient Within the past 12 months, did the food you bought not last and you didn't have the money to get more?: Never true Within the past 12 months, did you worry whether your food would run out before you got money to buy more?: Never true Do you have trouble paying for medicines?: No Do you have trouble getting transportation to medical appointments?: No Do you have trouble paying your heating and electricity bill?: No Do you have trouble taking care of your child, family member or friend?: No Do you have trouble with day-to-day activities such as bathing, preparing meals, shopping, managing finances, etc.?: No Are you currently unemployed and looking for a job?: No Are you interested in more education?: No THRIVE Score: 0 AUDIT C Alcohol Use Questionnaire (AUDIT-C) 1. How often do you have a drink containing alcohol?: Monthly or less 2. How many drinks containing alcohol do you have on a typical day when you are drinking?: 1 or 2 3. How often do you have six or more drinks on one occasion?: Less than monthly Total Score: 2 ROBBIE-7 AMB Questionnaire ROBBIE-7 Date ROBBIE - 7 assessed: 09/19/24 Feeling nervous, anxious, or on edge: 0 = Not at all Not being able to stop or control worryin = Not at all Worrying too much about different things: 0 = Not at all Trouble relaxin = Not at all Being so restless that it is hard to sit still: 0 = Not at all Becoming easily annoyed or irritable: 0 = Not at all Feeling afraid as if something awful might happen: 0 = Not at all Total ROBBIE-7 score (0-4 normal; 5-9 mild; 10-14 moderate; 15-21 severe): 0 Source: Developed by Drs. Ran Wright, Sary Mccracken, Ryan Chao and colleagues, with an educational terrell from [employer]. Physical exam (Primary Care) Vital Signs: Last Vital Signs Temp 97.8 F 09/19/24 08:41 Pulse 70 09/19/24 08:41 BP 130/80 09/19/24 08:41 Pulse Ox 98 09/19/24 08:41 Oxygen Delivery Method Room Air 09/19/24 08:41 BMI result Body Mass Index 28.5 Tobacco/Smoking Status: Tobacco use Status Tobacco use date assessed 09/19/24 09/19/24 08:43 Patient Tobacco Use Status Former Tobacco user 09/19/24 08:43 Tobacco use type Cigarette 09/19/24 08:43 e-Cigarette/Vaping Use Former Use 09/19/24 08:43 PHQ-9: PHQ-9 Score PHQ-9: Total score 0 09/19/24 10:32 Depression Screening Interpretation: Negative Thrive Assessment: Date of Thrive Assessment Date Thrive assessed 09/19/24 09/19/24 08:43 Coding Level of Care Code New Pt Level 4 (02959) Diagnoses Anxiety F41.9 Primary hypertension I10 Hypertension type: primary hypertension Hyperlipidemia, unspecified hyperlipidemia type E78.5 Hyperlipidemia type: unspecified Additional Codes PHQ-9 - 40894 - PHQ-9 Billing: Yes ([id number]) Assessment & Plan Assessment & Plan (1) Anxiety: Code(s): F41.9 - Anxiety disorder, unspecified Category: Medical (2) HTN (hypertension): Code(s): I10 - Essential (primary) hypertension Category: Medical Qualifiers: Hypertension type: primary hypertension Qualified Code(s): I10 - Esse ntial (primary) hypertension (3) Hyperlipidemia: Code(s): E78.5 - Hyperlipidemia, unspecified Category: Medical Qualifiers: Hyperlipidemia type: unspecified Qualified Code(s): E78.5 - Hyperlipidemia, unspecified Plan 78 yo to establish care past medical, surgical, social reviewed Labs ordered Anxiety-lorazepam refilled Orders: Orders Lipid Panel 3 Months E78.5 - Hyperlipidemia, unspecified, F41.9 - Anxiety disorder, unspecified, I10 - Essential (primary) hypertension, N28.1 - Cyst of kidney, acquired Hemoglobin A1c 3 Months E78.5 - Hyperlipidemia, unspecified, F41.9 - Anxiety disorder, unspecified, I10 - Essential (primary) hypertension, N28.1 - Cyst of kidney, acquired Comprehensive Met. Panel 3 Months E78.5 - Hyperlipidemia, unspecified, F41.9 - Anxiety disorder, unspecified, I10 - Essential (primary) hypertension, N28.1 - Cyst of kidney, acquired Complete Blood Count Auto Diff 3 Months E78.5 - Hyperlipidemia, unspecified, F41.9 - Anxiety disorder, unspecified, I10 - Essential (primary) hypertension, N28.1 - Cyst of kidney, acquired Medications: New lorazepam 0.5 mg PO DAILY PRN 30 tabs 1RF Anxiety
--- OUTSIDE RECORDS SUMMARY | 2024-09-19 10:37 | XMS_ITS | Patient Health Record ---
Author Organization [facility] Address [address] [place] [address] Care Team Providers Care Donor Recruitment Manager Name Role Phone Jordan LONGORIA, Tee Primary Care Provider Ran Hodge Unavailable [phone] Allergies No Known Allergies Results Component Value Reference Range Notes MAMMOGRAM DIGITAL BILATERAL SCREEN Reviewed date:03/11/2024 03:31:14 PM Interpretation:Normal Performing Lab: Notes/Report: Normal Pathology (Not yet reviewed by provider) Interpretation: Performing Lab:[facility], [address] [place] [id number] Notes/Report: Name: Janessa Arora Age/Sex: 78/F : 1945 Unit#: [id number] Attend Dr: Ran Maldonado MD Re07/02/24 Status : [facility] Location: [facility] [place] Disch: SPEC : [id number] RECD: 07/02/24 STATUS: DAWSON KIRAN NUM: [id number] RONNIE: 07/02/24 [facility] DR: Ran Maldonado MD ENTERED: 07/02/24 SP TYPE: Surgical OTHR DR: Tee Ortega MD ORDERED: HE Stain/3, Gross Micro L4 Diagnosis Colon, cecal polyp: Tubulovillous adenoma (multiple pieces, cannot evaluate margin); negative for high-gr adan dysplasia and carcinoma. Clinical History Pre-Op Dx: Benign ne oplasm of colon, screening Post-Op Dx: Polyp, diverticulosis, hemorrhoids Microscopic Description Microscopic sections reviewed. Material Received Cecal polyp Gross Description Received in formalin labeled ?cecal polyp? are 3 lock-pink papular tissue fragments each measuring 0.6 cm, cummings bmitted in toto in a cassette labeled A. Note: Specimen fragmented during processing. CEDS Copies To: Tee Ortega MD [facility] [address] [place], [place] [id number] Ran Maldonado MD [facility] [address] [place] [address] Signed (si gnature on file) Astrid Frazier 07/03/24 1043 END OF REPORT Reason For Referral No Information Medications Medication SIG (Take, Route, Frequency, Duration) Notes Start Date End Date Status Vitamin D3 Active Multivitamin Active Metamucil Active LORazepam 0.5 MG Oral for 30 A ctive Omeprazole 20 MG Oral for 90 A ctive Atorvastatin Calcium 10 MG TAKE ONE TABL ET BY MOUTH EVERY DAY Oral for 90 Active amLODIPine Besylate 2.5 MG Oral for 90 Active Social History Tobacco Use: Social History Observation Description Date Details (start date - stop date) Former Smoker NA - NA Tobacco Use/Smoking Question Answer Notes Patient is a former smoker How long has it been since you last smoked? > 10 years Alcohol Screen Question Answer Notes Did you have a drink containing alcohol in the p ast year? No Points 0 Interpretation Negative Section Notes: quit tobacco age 51 quit tobacco age 51 Problems Problem Type SNOMED Code ICD Code Onset Dates Problem Status W/U Status Risk Notes Problem Screening for malignant neoplasm of colon (970231761) Encounter for screening for malignant neoplasm of colon (Z12.11) Active confirmed Problem Constipation (56998133) Constipation (K59.00) Active confirmed Problem Diverticular disease of colon (540661110) Diverticulosis of large intestine without perforation or abscess without bleeding (K57.30) Active confirmed Problem Tubular adenoma of colon (168476851) Tubular adenoma of colon (D12.6) Active confirmed Problem 568542052 Positive colorectal cancer screening using Cologuard test (R19.5) Active confirmed Vital Signs Blood pressure diastolic 80 mm Hg 03/11/2024 Height 62 in 03/11/2024 Blood pressure systolic 120 mm Hg 03/11/2024 Weight 154 lbs 03/11/2024 BMI 28.16 kg/m2 03/11/2024 Encounters Encounter Location Date Provider Diagnosis [facility] Outpatient [address] [place] [phone] 07/02/2024 Ran Maldonado Colon cancer screeni ng Z12.11 ; Colon polyps K63.5 ; Diverticulosis of large intestine without perforation or abscess without bleeding K57.30 and Other hemorrhoids K64.8 [facility] [address] [place] [address] 03/11/2024 Ran Maldonado Constipation K59.00 ; Encounter for screening for malignant neoplasm of colon Z12.11 and Tubular adenoma of colon D12.6 Assessments Encounter Date Diagnosis (ICD Code) Assessment Notes Treatment Notes Treatment Clinical Notes Section Notes 07/02/2024 Colon cancer screening (ICD-10 - Z12.11) 07/02/2024 Colon polyps (ICD-10 - K63.5) 03/11/2024 Encounter for screening for malignant neoplasm of colon (ICD-10 - Z12.11) Overall, Janessa appears quite well. We did review the findings on her colonoscopy from last year. I did recommend a followup colonoscopy for further evaluation given the relatively large and relatively flat nature of the cecal polyps so as to rule out any residual adenomatous tissue remaining in the cecum. We did review the rationale for that in regard to colorectal cancer prevention and/or early detection. Full consent was obtained for this, including risks of bleeding and perforation. The procedure will be done with monitored anesthesia care. In regard to her chronic constipation I did advise to continue her daily Metamucil but to be sure to drink a lot of fluids with that and throughout the day, as well as to stay on a high fiber and healthy diet in general. I did advise her that she could take some daily MiraLax if need be in regard to the constipation. In regard to the description of her right lower quadrant discomfort, this does not seem to particularly worrisome given her benign exam, excellent clinical appearance, and negative CT scans in the past. This may be more musculoskeletal in nature as she does describe that exercising and moving around actually seems to help it. Janessa was comfortable with this plan. Thank you again for allowing me to participate in Janessa's care. I shall continue to keep you advised of her progress. 03/11/2024 Constipation (ICD-10 - K59.00) Drink a lot of water with the Metamucil and eat a healthy, high fiber diet with fluids. Use Miralax as needed. Try to get me a copy of your upcoming CT scan Overall, Janessa appears quite well. We did review the findings on her colonoscopy from last year. I did recommend a followup colonoscopy for further evaluation given the relatively large and relatively flat nature of the cecal polyps so as to rule out any residual adenomatous tissue remaining in the cecum. We did review the rationale for that in regard to colorectal cancer prevention and/or early detection. Full consent was obtained for this, including risks of bleeding and perforation. The procedure will be done with monitored anesthesia care. In regard to her chronic constipation I did advise to continue her daily Metamucil but to be sure to drink a lot of fluids with that and throughout the day, as well as to stay on a high fiber and healthy diet in general. I did advise her that she could take some daily MiraLax if need be in regard to the constipation. In regard to the description of her right lower quadrant discomfort, this does not seem to particularly worrisome given her benign exam, excellent clinical appearance, and negative CT scans in the past. This may be more musculoskeletal in nature as she does describe that exercising and moving around actually seems to help it. Janessa was comfortable with this plan. Thank you again for allowing me to participate in Janessa's care. I shall continue to keep you advised of her progress. 07/02/2024 Diverticulosis of large intestine without perforation or abscess without bleeding (ICD-10 - K57.30) 03/11/2024 Tubular adenoma of colon (ICD-10 - D12.6) Overall, Janessa appears quite well. We did review the findings on her colonoscopy from last year. I did recommend a followup colonoscopy for further evaluation given the relatively large and relatively flat nature of the cecal polyps so as to rule out any residual adenomatous tissue remaining in the cecum. We did review the rationale for that in regard to colorectal cancer prevention and/or early detection. Full consent was obtained for this, including risks of bleeding and perforation. The procedure will be done with monitored anesthesia care. In regard to her chronic constipation I did advise to continue her daily Metamucil but to be sure to drink a lot of fluids with that and throughout the day, as well as to stay on a high fiber and healthy diet in general. I did advise her that she could take some daily MiraLax if need be in regard to the constipation. In regard to the description of her right lower quadrant discomfort, this does not seem to particularly worrisome given her benign exam, excellent clinical appearance, and negative CT scans in the past. This may be more musculoskeletal in nature as she does describe that exercising and moving around actually seems to help it. Janessa was comfortable with this plan. Thank you again for allowing me to participate in Janessa's care. I shall continue to keep you advised of her progress. 07/02/2024 Other hemorrhoids (ICD-10 - K64.8) Plan Of Treatment Pending Test Test Name Order Date Pathology 07/02/2024 Future Test Test Name Order Date COLONOSCOPY 09/19/2022 COLONOSCOPY 03/11/2024 Insurance Providers Payer Name Payer Address Payer Phone Subscriber Number Group Number Insured Name Patient Relationship to Insured Coverage Start Date Coverage End Date [facility] [address] [place] [address] [id number] JANESSA ARORA Self - patient is the insured Medical (General) History Medical History History ICD Code Kidney stones Hypertension GERD Hyperlipidemia Denies PA,DM,CVA,Lung disease,renal dise ase + Cologuard test early 2022 Colonoscopy 10/2022 with the removal of 2 flat tubular adenomas from the cecum Surgical History Surgery Date(Month/Year) Biopsy of lesion on left leg 09/13/2022---going back to [facility] for followup Basal cell cancer on forehead Tubal ligation Cataracts 2014
--- OUTSIDE RECORDS SUMMARY | 2024-09-19 10:37 | XMS_ITS ---
Author Organization [facility] Address [address] [place] [address] Care Team Providers Care Construction Coordinator Name Role Phone Tee Ortega MD Primary Care Provider Ran Hodge [phone] REASON FOR VISIT screening, tubular adenoma of colon Encounters Encounter Location Date Provider Diagnosis [facility] Outpatient [address] [place], [place] [phone] 07/02/2024 Ran Maldonado Colon cancer scree rosa [...] Notes * JANESSA MENDOZADOB:1945 (78 yo F)Acc No.[id number]:07/02/2024 COLON WITH MAC Patient:?JANESSA MENDOZA Provider:?Ran Maldonado MD :1945???Age:78 Y???Sex:Female D ate:07/02/2024 Address:[address] [facility] [place] Pcp:Tee Ortega MD Subjective: * Chief Complaints: * ???1. Screening, tubular adan noma of colon. * Medical History:? Objective: * Vitals:? Assessment: * Assessment: 1.?Colon cancer screening - Z12.11 (Primary)???2.?Colon polyps - K63.5???3.?Diverticulosis of large intestine without perforation or abscess without bleeding - K57.30???4.?Other hemorrhoids - K64.8??? Plan: * Treatment: * Procedure Codes:?14765 LESIO N REMOVAL COLONOSCOPY, Modifiers: PT * * The named appointment provid er may or may not be the originator of this progress note, and it is not deemed complete until electronically signed by the appointment provider. Sign off status: Pending * Provider:?Ran Maldonado MD Date:? 025 Generated for Rona shah/Mira/eTransmitting on:?09/19/2024 10:37 AM EDT
--- OUTSIDE RECORDS SUMMARY | 2024-09-19 10:37 | XMS_ITS ---
Author Organization [facility] Address [address] [place] [address] Care Team Providers Care Career Development Specialist Name Role Phone Tee Ortega MD Primary Care Provider Ran Hodge Unavailable [phone] Allergies No Known Allergies REASON FOR VISIT Patient presents today for a COLON SCREENING Medications Medication SIG (Take, Route, Frequency, Duration) Notes Start Date End Date Status Vitamin D3 Active LORazepam 0.5 MG Oral for 30 A ctive Omeprazole 20 MG Oral for 90 A ctive Atorvastatin Calcium 10 MG TAKE ONE TABL ET BY MOUTH EVERY DAY Oral for 90 Active amLODIPine Besylate 2.5 MG Oral for 90 Active Multivitamin Active Metamucil Active Social History Tobacco Use: Social History [...] Negative Section Notes: quit tobacco age 51 Problems Problem Type SNOMED Code ICD Code Onset Dates Problem Status W/U Status Risk Notes Problem Constipation (69800516) Constipation (K59.00) Active confirmed Problem Screening for malignant neoplasm of colon (822842362) Encounter for screening for malignant neoplasm of colon (Z12.11) Active confirmed Problem Tubular adenoma of colon (506903248) Tubular adenoma of colon (D12.6) Active confirmed Vital Signs Blood pressure systolic 120 mm Hg 03/11/20 24 Blood pressure diastolic 80 mm Hg 024 Height 62 in 03/11/2024 Weight 154 lbs 03/11/2024 BMI 28.16 kg/m2 03/11/2024 Encounters Encounter Location Date Provider Diagnosis [facility] [address] [place] [address] 03/11/2024 Ran Maldonado Constipation K59.00 ; Encounter for screening for malignant neoplasm of colon Z12.11 and Tubular adenoma of colon D12.6 Assessments Encounter Date Diagnosis (ICD Code) Assessment Notes Treatment Notes Treatment Clinical Notes Section Notes 03/11/2024 Constipation (ICD-10 - K59.00) Drink [...] keep you advised of her progress. 03/11/2024 Encounter for screening for malignant neoplasm [...] keep you advised of her progress. 03/11/2024 Tubular adenoma of colon (ICD-10 - [...] to keep you advised of her progress. Plan Of Treatment Treatment Notes Assessment Notes Constipation Drink a lot of water with the Metamucil and eat a healthy, high fiber diet with fluids. Use Miralax as needed. Try to get me a copy of your upcoming CT scan Future Test Test Name Order Date COLONOSCOPY 03/11/2024 Next Appt Details Follow Up: prn, Reason: Progress Notes * JANESSA MENDOZADOB:1945 (78 yo F)Acc No.[id number]:03/11/2024 Progress Notes Patient:?JANESSA MENDOZA Provider:?Ran Maldonado MD :1945???Age:78 Y???Sex:Female D ate:03/11/2024 Address:[address] [place], [place] [address] [place] Pcp:Tee Ortega MD Subjective: * Chief Complaints: * ???Patient presents today fo r a COLON SCREENING * HPI: ???incontinence:? I saw Janessa in followup today in regard to her personal history of tubular adenomas of the colon and discussion of colon cancer screening, as well as her intermittent constipation and right lower quadrant discomfort. ?I last saw Janessa in October of 2022, at which time she underwent a colonoscopy for evaluation of a positive Cologuard. This revealed 2 flat tubular adenomas that were removed from the cecum. The remainder of the colonoscopy was unremarkable. ?She presently feels well in general. She has had issues with intermittent constipation and right lower quadrant discomfort over the years for which she had a negative CT scan in 2021 and 2022. She does take daily Metamucil but does not drink much water with it or during the day in general. She denies any hematochezia nor melena. She enjoys a good appetite, without any significant heartburn or dysphagia. She denies any abdominal pain, jaundice, fevers, urinary symptoms, nor unintentional weight loss. She does exercise regularly. As far as the right lower quadrant discomfort is concerned she reports that it is not particularly bothersome to her and is not tender when she palpates it. She thinks the discomfort actually feels better after exercising and moving around. ?Laboratories from earlier this month revealed a normal CBC with platelet count, normal chemistries and renal function, normal LFTs, and a normal C- reactive protein. * ROS:?General/Constitutional:?Change in appetite?denies.?Chills?denies.?Fatigue?denies.?Ophthalmologic:?Comments?all negative.?ENT:?Comments?all negative.?Respiratory:?hemoptysis?denies.?Cough?denies.?Cardiovascular:?Chest pain?denies.?Orthopnea?denies.?Gastrointestinal:?Comments?See HPI for details.?Genitourinary:?Hematuria?denies.?Dysuria?denies.?Musculoskeletal:?Painful joints?denies.?Weakness?denies.?Skin:?Itching?denies.?Rash?denies.?Neurologic:?Headache?denies.?Seizures?denies.?Psychiatric:?Comments?all negative.? * Medical History:? * Surgical History:?Cataracts 2014Tubal ligation Basal cell cancer on forehead Biopsy of lesion on left leg 09/13/2022---going back to [facility] for followup * Hospitalization/Major Diagno stic Procedure:?No Hospitalization History. * Family History:?Father: dece ased.?Mother: .? no known hx of colon cancer. * Social History:?Tobacco Use:?Tobacco Use/Smoking?Patient is a?former smoker,?How long has it been since you last smoked??> 10 years.?Drugs/Alcohol:?Alcohol Screen?Did you have a drink containing alcohol in the past year??No,?Points?0,?Interpretation?Negative.?Miscellaneous:?Marital status: . Occupation: retired. ???quit tobacco age 51. * Medications:?TakingMetamucil Multivitamin Vitamin D3 amLODIPine Besylate 2.5 MG Tablet Oral Atorvastatin Calcium 10 MG Tablet TAKE ONE TABLET BY MOUTH EVERY DAY Oral Omeprazole 20 MG Capsule Delayed Release Oral LORazepam 0.5 MG Tablet Oral Medication List reviewed and reconciled with the patientTaking Metamucil Taking Multivitamin Taking Vitamin D3 Taking amLODIPine Besylate 2.5 MG Tablet Oral Taking Atorvastatin Calcium 10 MG Tablet TAKE ONE TABLET BY MOUTH EVERY DAY Oral Taking Omeprazole 20 MG Capsule Delayed Release Oral Taking LORazepam 0.5 MG Tablet Oral Medication List reviewed and reconciled with the patient * Allergies:?N.K.D.A.yes[Aller gies Verified] Objective: * Vitals:?Wt: 154 lbs, Ht: 62 in, BMI: 28.16 Index, BP: 120/80 mm Hg, Wt-k.85. * Examination: ???General Examination: ?GENERAL APPEARANCE:?pleasant, well nourished, well developed, in no acute distress.?EYES:?sclera non-icteric.?ORAL CAVITY:?mucosa moist.?NECK/THYROID:?no cervical lymphadenopathy, neck supple.?SKIN:?nonjaundiced, no spider angiomata.?HEART:?S1, S2 normal.?LUNGS:?clear to auscultation bilaterally.?ABDOMEN:?normal bowel sounds, no guarding or rigidity, no guarding or rigidity, no masses palpable, soft, nontender, nondistended.?EXTREMITIES:?no edema.?NEUROLOGIC:?alert and oriented.? Assessment: * Assessment: 1.?Constipation - K59.00 (Pr imary)?2.?Encounter for screening for malignant neoplasm of colon - Z12.11?3.?Tubular adenoma of colon - D12.6? Overall, Janessa appears quite well. We did [...] to keep you advised of her progress. Plan: * Treatment: 2.?Encounter for screening f or malignant neoplasm of colon?Procedure: COLONOSCOPY (Ordered for 03/11/2024) 3.?Tubular adenoma of colon?Procedure: COLONOSCOPY (Ordered for 03/11/2024)* with MACsched for 07/02/24 at 8:30 ammiralax * Procedure Codes:?1036F TOBAC CO NON-XOFFS3681 BP SCR NOT PRFRM REC REASON NOS * Preventive Medicine:? ??Counseling:?Care goal follow-up plan:?Above Normal BMI Follow-up?Giving encouragement to exercise,?BMI management provided?Yes.? ??Urinary Incontinence:?Urinary Incontinence?Assessment:?Present,?Plan of care documented:?Yes,?Type of plan of care:?Lifestyle interventions.? ??Screenings:?Fall Risk Screening?Fall Risk Assessment:?No falls in the past year,?Screening:?No falls in the past year,?Assessment:?Not performed, no reason specified,?Plan of Care:?Not documented, no reason specified.? * Follow Up:?prn * * Sign off status: Completed true * Provider:?Ran Maldonado MD Date:? 024 Generated for Rona shah/Mira/Saniaitting on:?09/19/2024 10:37 AM EDT History and Physical Notes * HPI (History of Present Illness) Category Sub-Category Detail Notes Category Not es incontinence I saw Janessa in followup today in regard to her personal history of tubular adenomas of the colon and discussion of colon cancer screening, as well as her intermittent constipation and right lower quadrant discomfort. I last saw Janessa in October of 2022, at which time she underwent a colonoscopy for evaluation of a positive Cologuard. This revealed 2 flat tubular adenomas that were removed from the cecum. The remainder of the colonoscopy was unremarkable. She presently feels well in general. She has had issues with intermittent constipation and right lower quadrant discomfort over the years for which she had a negative CT scan in 2021 and 2022. She does take daily Metamucil but does not drink much water with it or during the day in general. She denies any hematochezia nor melena. She enjoys a good appetite, without any significant heartburn or dysphagia. She denies any abdominal pain, jaundice, fevers, urinary symptoms, nor unintentional weight loss. She does exercise regularly. As far as the right lower quadrant discomfort is concerned she reports that it is not particularly bothersome to her and is not tender when she palpates it. She thinks the discomfort actually feels better after exercising and moving around. Laboratories from earlier this month revealed a normal CBC with platelet count, normal chemistries and renal function, normal LFTs, and a normal C-reactive protein. Examination Category Sub-Category Detail Notes Category Not es General Examination GENERAL APPEARANCE: pleasant , well [...]
== END 2024-09-19 10:49 | disposition home or self-care (01) ==
LOC: HO.HMCHD 10:08
PROVIDERS: PCP Internal Medicine; Visit Provider Internal Medicine
DX: F41.9 Anxiety disorder, unspecified (principal); I10 Essential (primary) hypertension; E78.5 Hyperlipidemia, unspecified

== ENCOUNTER → 2024-09-19 10:07 | Outpatient (BNVA) | payer MEDICARE, SELFPAY | PROVIDERS: PCP Internal Medicine; Visit Provider Internal Medicine | DX: I10 Essential (primary) hypertension (principal); E78.5 Hyperlipidemia, unspecified; K21.9 Gastro-esophageal reflux disease without esophagitis; J44.9 Chronic obstructive pulmonary disease, unspecified; M85.80 Other specified disorders of bone density and structure, unspecified site; F41.9 Anxiety disorder, unspecified; Z87.891 Personal history of nicotine dependence; Z87.442 Personal history of urinary calculi; Z86.0100 Personal history of colon polyps, unspecified; Z79.899 Other long term (current) drug therapy | CPT/HCPCS: 96127; 99202 ==

== ENCOUNTER 2024-11-25 08:41 | Outpatient (AMB) | payer MEDICARE, SELFPAY ==
--- OUTSIDE RECORDS SUMMARY | 2024-07-02 03:30 | XMS_ITS ---
Author Organization [facility] Address [address] [place] [address] Care Team Providers Care Driver Helper Name Role Phone Jordan (RETIRED) Tee LONGORIA Primary Care Provide Ran Antonio [phone] REASON FOR VISIT screening, tubular adenoma of colon Encounters Encounter Location Date Provider [place] [facility] [place] [address] [place], [place] [id number] 07/02/2024 Ran Maldonado Colon cancer scree rosa Z12.11 ; Colon polyps K63.5 ; Diverticulosis of large intestine without perforation or abscess without bleeding K57.30 and Other hemorrhoids K64.8 Assessments Encounter Date Diagnosis (ICD Code) Assessment Notes Treatment Notes Treatment Clinical Notes Section Notes 07/02/2024 Colon cancer screening (ICD-10 - Z12.11) 07/02/2024 Colon polyps (ICD-10 - K63.5) 07/02/2024 Diverticulosis of large intestine without perforation or abscess without bleeding (ICD-10 - K57.30) 07/02/2024 Other hemorrhoids (ICD-10 - K64.8) Plan Of Treatment No Information Progress Notes * JANESSA MENDOZADOB:1945 (78 yo F)Acc No.[id number]:07/02/2024 COLON WITH MAC Patient: JANESSA JAMES Provider: Jo Maldonado MD :1945 A ge:78 Y S ex:Female Date:07/02/2024 Address:[address] [facility] [facility] [facility] [address] [facility] , [place], [id number] Pcp:Tee Ortega (RETIRED )MD Subjective: * Chief Complaints: * 1 . Screening, tubular adenoma of colon. * Medical History: Objective: * Vitals: Assessment: * Assessment: 1. C olon cancer screening - Z12.11 (Primary) 2 . C olon polyps - K63.5? 3. D iverticulosis of large intestine without perforation or abscess without bleeding - K57.30 4 . O ther hemorrhoids - K64.8 Plan: * Treatment: * Procedure Codes: 4 5385 LESION REMOVAL COLONOSCOPY, Modifiers: PT * * The named appointment provid er may or may not be the originator of this progress note, and it is not deemed complete until electronically signed by the appointment provider. Sign off status: Pending * Provider: Jo Maldonado MD Date: 0 07/02/2024 Generated for Rona shah/Mira/Saniaitting on: 0 11/25/2024 08:49 AM EDT
--- NOTE | 2024-11-25 08:43 | A.OFFVIS_ITS ---
Intake Visit Reasons: 6m/UA/PVR Intake Note: Patient is present for 6M follow up for kidney cyst , bladder instability Urology Medication:none Antibiotic Allergy:NONE Blood Thinner:NONE Afterschool Babysitter Required: No Accompanied by: Self / Same As Patient Allergies latex Allergy (Verified 09/19/24 08:42) SKIN ITTIRATION/REDNESS HPI Comments Details: Vale is very pleasant female. She is seen for the following urologic conditions - complex cyst - nephrolithiasis - bladder instability 6m f/u Has been doing pelvic floor exercises Would like to try solifenacin for bladder Prescription provided Check renal cyst next year Bladder instability Bathroom planning Urge and frequency at home Minimal incontinence Given age of 76 - Trial Myrbetriq - high co-pay Nephrolithiasis Did pass stone after last visit They are small Discussed having combination Naprosyn, Flomax, prednisone to self start Complex renal cyst Longstanding Followed with serial imaging Ultrasound - 12/01 left 2.5 cm complex cyst with thin wall, question of 3 mm stone bilateral - 01/02 left 2.7 cm complex cyst with thin wall question, right 1.5 cm - 04/05 CT scan nephrolithiasis, cyst Bosniak 1 - 04/06 CT - bilateral cysts, small stones left side Follow p.r.n. [facility] Medical History Anxiety Hyperlipidemia GERD (gastroesophageal reflux disease) HTN (hypertension) Facial basal cell cancer Cataracts, bilateral History of skin cancer Renal cyst, acquired Renal stones Surgical History H/O adenoidectomy Hx of tonsillectomy H/O colonoscopy Status post Mohs surgery History of cataract surgery H/O lithotripsy H/O tubal ligation History of biopsy Family History Mother No problems noted. Father No problems noted. Social History Household Members: Spouse Housing: House Patient Tobacco Use Status: Former Tobacco user Tobacco use type: Cigarette Cigarette Packs Per Day: 1.5 Cigarettes Per Day: 30.0 Years Smoked: 35 e-Cigarette/Vaping Use: Former Use service: No Current occupational status: retired Cognitive needs: No Hearing needs: No Vision needs: Yes (reading glasses) Assessment & Plan Assessment & Plan (1) Bladder instability: Code(s): N32.89 - Other specified disorders of bladder Category: Medical (2) Kidney cysts: Code(s): N28.1 - Cyst of kidney, acquired Category: Medical Plan Trial solifenacin Orders: Orders US renal BI 6 Months N28.1 - Cyst of kidney, acquired Medications: New solifenacin 5 mg PO DAILY 30 tabs 1RF 30 days N32.89 - Other specified disorders of bladder Patient Instructions: This note is constructed using voice recognition software. While every effort has been made to ensure accuracy interior plant caretaker errors may have been included. Imaging studies, laboratory and physical exam results were discussed and reviewed in detail. No major barriers to patient understanding were identified. An opportunity to ask questions regarding the treatment plan was provided. All questions were answered. The patient expressed understanding and agreement with the above treatment plan. The patient is aware they should contact our office by phone for worsening of their current condition or the appearance of new urologic symptoms. Compliance is encouraged with any medications and followup testing that is ordered. It is a privilege to participate in the urologic care of your patient. If you have any questions or concerns regarding treatment for the above conditions, or other urologic issues, please do not hesitate to contact me. The office telephone contact is [phone]. Sincerely, Dr Yasir Beaulieu MD, [facility] - Urology Compassionate Specialist Care for the Genitourinary System Coding Level of Care Code Est Pt Level 4 (75448) Diagnoses Bladder instability N32.89 Kidney cysts N28.1
== END 2024-11-25 09:26 | disposition home or self-care (01) ==
LOC: HO.HUSH 08:42
PROVIDERS: PCP Internal Medicine; Visit Provider Urology
DX: N32.89 Other specified disorders of bladder (principal); N28.1 Cyst of kidney, acquired; Z13.9 Encounter for screening, unspecified
CPT/HCPCS: 99214

== ENCOUNTER → 2024-11-25 08:41 | Outpatient (BNVA) | payer MEDICARE, SELFPAY | PROVIDERS: PCP Internal Medicine; Visit Provider Urology | DX: N28.1 Cyst of kidney, acquired (principal); N32.89 Other specified disorders of bladder | CPT/HCPCS: 81003; 99212 ==

== ENCOUNTER 2024-12-29 06:31 | Outpatient (REF) | payer MEDICARE, SELFPAY ==
--- OUTSIDE RECORDS SUMMARY | 2024-07-02 03:30 | XMS_ITS ---
Author Organization [facility] Address [address] [place] [address] Care Team Providers Care Jute Bag Cutting Machine Operator Name Role Phone Jordan (RETIRED) Tee LONGORIA Primary Care Provide Ran Antonio [phone] REASON FOR VISIT screening, tubular adenoma of colon Encounters Encounter Location Date Provider [place] [facility] [place] [address] [place], [place] [id number] 07/02/2024 Ran Maldonado Colon cancer scree rosa [...] No Information Progress Notes * JANESSA MENDOZADOB:1945 (79 yo F)Acc No.[id number]:07/02/2024 COLON WITH MAC Patient: JANESSA JAMES Provider: Jo Maldonado MD :1945 A ge:78 Y S ex:Female Date:07/02/2024 Address[address] [facility] [address] [facility] [place] [place] Pcp:Tee Ortega (RETIRED )MD Subjective: * Chief [...] 07/02/2024 Generated for Rona shah/Mira/Saniaitting on: 0 12/29/2024 06:33 AM EDT
[2024-12-29 06:51] LABS: MANUAL DIFF FLAG NO
[2024-12-29 07:20] LABS: Hematocrit 39.6 % (37.0-47.0); Hemoglobin 13.5 g/dl (12.0-16.0); Imm Gran Abs Auto 0.01 X10*3/uL (0.00-0.03); Imm Gran Pct Auto 0.2 % (0.0-0.4); Lymphocytes Absolute Auto 1.6 X10*3/uL (1.2-4.9); Mean Corpuscular HGB Conc 34.1 g/dl (31.0-35.0); Mean Corpuscular Hemoglobin 31.1 pg (27.0-33.0); Mean Corpuscular Volume 91.2 fL (80.0-98.0); NRBC Abs Auto 0.000 X10*3/uL (0.0-0.012); NRBC Pct Auto 0.0 /100WBC (0.0-0.2); Platelet Count 232 X10*3/uL (160-400); Red Blood Count 4.34 X10*6/uL (4.20-5.50); White Blood Count 6.5 X10*3/uL (4.8-10.8)
[2024-12-29 08:05] LABS: Hemoglobin A1C 125.1581 umol/L; Total Hemoglobin (HGBA1C) 3554.4446 umol/L
[2024-12-29 08:06] LABS: Alanine Aminotransferase 20 U/L (0-31); Albumin Level 4.4 g/dL (3.5-5.0); Alkaline Phosphatase 77 U/L (39-117); Anion Gap 13 (12-20); Aspartate Amino Transferase 19 U/L (5-31); Blood Urea Nitrogen 20 mg/dL (9-16); Calcium 9.9 mg/dL (8.4-10.2); Carbon Dioxide 26 mmol/L (22-29); Chloride 110 mmol/L (96-108); Cholesterol 146 mg/dL (<200); Estimated Glomerular Filt Rate 50; HDL Cholesterol 44 mg/dL (>40); Potassium 4.8 mmol/L (3.3-5.1); Sodium 144 mmol/L (135-145); Total Protein 6.7 g/dL (6.5-8.0); Triglycerides 95 mg/dL (<150)
== END 2024-12-29 06:32 | disposition home or self-care (01) ==
LOC: HO.LAB 06:31
PROVIDERS: PCP Internal Medicine; Visit Provider Internal Medicine
DX: I10 Essential (primary) hypertension (principal); N28.1 Cyst of kidney, acquired; E78.5 Hyperlipidemia, unspecified; F41.9 Anxiety disorder, unspecified; Z13.1 Encounter for screening for diabetes mellitus
CPT/HCPCS: 36415; 80053; 80061; 83036; 85025

== ENCOUNTER 2025-01-23 08:53 | Outpatient (AMB) | payer MEDICARE, SELFPAY ==
--- OUTSIDE RECORDS SUMMARY | 2024-07-02 03:30 | XMS_ITS ---
Author Organization [facility] Address [address] [place] [address] Care Team Providers Care Appraiser Oil [employer] Water Name Role Phone Jordan (RETIRED) Tee LONGORIA Primary Care Provide Ran Antonio [phone] REASON FOR VISIT screening, tubular adenoma of colon Encounters Encounter Location Date Provider Diagnosis [facility] [place] [address] [place], [place] [id number] 07/02/2024 Ran Maldonado Colon cancer scree rosa [...] Notes * JANESSA MENDOZADOB:1945 (79 yo F)Acc No.[id number]:07/02/2024 COLON WITH MAC Patient: JANESSA JAMES Provider: Jo Maldonado MD :1945 A ge:78 Y S ex:Female Date:07/02/2024 Address:[address] [facility] [address] [facility] [place] [place] Pcp:Tee Ortega (RETIRED )MD Subjective: * Chief [...] Maldonado MD Date: 0 07/02/2024 Generated for oRna shah/Mira/Saniaitting on: 0 01/23/2025 09:40 AM EDT
--- NOTE | 2025-01-23 08:58 | MHC.PC.OV ---
Vital Signs 01/23/25 09:06 01/23/25 09:21 01/23/25 09:35 Height 5 ft 2 in Weight 70.76 kg BMI 28.5 BP 144/82 H 148/80 H 150/78 H Respiration 16 Pulse 77 Pulse Source Pulse Oximeter Temp 96.9 F Temp Source Temporal Artery Scan Pulse Oximetry (%) 96 Oxygen Delivery Method Room Air Intake Visit Reasons: 4 Month F/U Clerk Checker Required: No Accompanied by: Self / Same As Patient Allergies latex Allergy (Verified 01/23/25 08:58) SKIN ITTIRATION/REDNESS Medication List - Last Reconciled 01/23/25 by BELIA Joshi amlodipine 5 mg PO DAILY atorvastatin 10 mg PO DAILY cholecalciferol (vitamin D3) 50 mcg PO DAILY clobetasol 0.05% topical lorazepam 0.5 mg PO DAILY PRN multivitamin 1 tab PO DAILY omeprazole 20 mg PO DAILY psyllium husk (Metamucil [facility] Fiber) 1.65 grams PO DAILY solifenacin 5 mg PO DAILY 90 days Tobacco use date assessed: 09/19/24 Dental Screening Dental Screen Date: 09/19/24 HPI HPI Comments History of Present Illness Details The patient is a 78 year old female with a past medical history of prediabetes, hypertension, hyperlipidemia, GERD, COPD, osteopenia, nephrolithiasis, anxiety, colon polyps presenting for follow up. Saw pcp September 2024 CV: on lipitor 10mg daily, amlodipine 2.5mg daily. BP is well controlled. Denies chest pain, exertional dyspnea. Blood pressure in the office 148/80, last visit BP was WNL Prediabetes:-reversed with hemoglobin A1c 5.4% Urology: Follows at [facility] once annually. Overactive bladder- started on solifenacin with some effect. No recent kidney stones Sees [facility]-Dr Nolan. [facility] May 2024 R thigh. Basal cell nose and forehead. Denies sunexposure with long sleeves and hat Concerns: None Health maintenance: Mammo: 04/2024, steph for dec Colonoscopy 07/02/2024 ROS CONSTITUTIONAL: Denies weight loss, fever and chills. HEENT: Denies changes in vision and hearing. RESPIRATORY: Denies SOB and cough. CV: Denies palpitations and CP GI: Denies abdominal pain, nausea, vomiting and diarrhea. : Denies dysuria and urinary frequency. MSK: Denies new myalgia and joint pain. SKIN: Denies rash and pruritus. NEUROLOGICAL: Denies headache PSYCHIATRIC: Denies recent changes in mood. PHYSICAL EXAM: GENERAL: Alert and oriented x 3. NAD EYES: EOMI. Anicteric. HENT: Moist mucous membranes. No scleral icterus. No cervical lymphadenopathy. LUNGS: Clear to auscultation bilaterally. CARDIOVASCULAR: Regular rate and rhythm. No murmur. No JVD. ABDOMEN: Soft, non-tender +bs EXTREMITIES: No edema. Non-tender. SKIN: No rashes or lesions. Warm. NEUROLOGIC: No focal neurological deficits. CN II-XII grossly intact PSYCHIATRIC: Cooperative. Appropriate mood and affect [facility] Medical History (Updated 01/23/25 @ 09:41 by BELIA Joshi) CKD stage 3a, GFR 45-59 ml/min Overactive bladder Squamous cell carcinoma in situ Anxiety Hyperlipidemia GERD (gastroesophageal reflux disease) HTN (hypertension) Facial basal cell cancer Cataracts, bilateral History of skin cancer Renal cyst, acquired Renal stones Surgical History H/O adenoidectomy Hx of tonsillectomy H/O colonoscopy Status post Mohs surgery History of cataract surgery H/O lithotripsy H/O tubal ligation History of biopsy Family History Mother No problems noted. Father No problems noted. Social History Household Members: Spouse Housing: House Patient Tobacco Use Status: Former Tobacco user Tobacco use type: Cigarette Cigarette Packs Per Day: 1.5 Cigarettes Per Day: 30.0 Years Smoked: 35 e-Cigarette/Vaping Use: Former Use service: No Current occupational status: retired Cognitive needs: No Hearing needs: No Vision needs: Yes (reading glasses) Questionnaire Thrive Questionnaire Date Thrive assessed: 09/19/24 ROBBIE-7 AMB Questionnaire ROBBIE-7 Date ROBBIE - 7 assessed: 09/19/24 Source: Developed by Drs. Ran Wright, Sary Mccracken, Ryan Chao and colleagues, with an educational terrell from [employer]. Physical exam (Primary Care) Vital Signs: Last Vital Signs Temp 96.9 F 01/23/25 09:06 Pulse 77 01/23/25 09:06 Resp 16 01/23/25 09:06 BP 144/82 H 01/23/25 09:06 Pulse Ox 96 01/23/25 09:06 Oxygen Delivery Method Room Air 01/23/25 09:06 BMI result Body Mass Index 28.5 Tobacco/Smoking Status: Tobacco use Status Tobacco use date assessed 09/19/24 01/23/25 08:59 Patient Tobacco Use Status Former Tobacco user 01/23/25 08:59 Tobacco use type Cigarette 01/23/25 08:59 e-Cigarette/Vaping Use Former Use 01/23/25 08:59 Thrive Assessment: Date of Thrive Assessment Date Thrive assessed 09/19/24 01/23/25 08:59 Coding Level of Care Code Est Pt Level 4 (52125) Complex EM visit Add On G2211 Diagnoses Primary hypertension I10 Hypertension type: primary hypertension Hyperlipidemia, unspecified hyperlipidemia type E78.5 Hyperlipidemia type: unspecified Anxiety F41.9 Overactive bladder N32.81 Assessment & Plan Assessment & Plan (1) HTN (hypertension): Code(s): I10 - Essential (primary) hypertension Category: Medical Qualifiers: Hypertension type: primary hypertension Qualified Code(s): I10 - Essential (primary) hypertension Plan: Uncontrolled despite multiple rechecks. Increase amlodipine to 5 mg daily. She will have her blood pressures checked 3 days weekly at the [facility] and will contact the office or bring in blood pressure readings. If further adjustments need to be made (2) Hyperlipidemia: Code(s): E78.5 - Hyperlipidemia, unspecified Category: Medical Qualifiers: Hyperlipidemia type: unspecified Qualified Code(s): E78.5 - Hyperlipidemia, unspecified Plan: At goal. Continue atorvastatin 10 mg daily (3) Anxiety: Code(s): F41.9 - Anxiety disorder, unspecified Category: Medical Plan: Stable. Monitor symptoms (4) Overactive bladder: Code(s): N32.81 - Overactive bladder Category: Medical Plan: Reviewed last urology note. Continue so guaifenesin Plan Follow-up in the office in 4 months, labs to be completed prior to visit. She will contact the office with blood pressure readings Orders: Orders Basic Metabolic Panel 4 Months I10 - Essential (primary) hypertension, N18.31 - Chronic kidney disease, stage 3a Medications: New amlodipine 5 mg PO DAILY 90 tabs 1RF
[2025-01-23 09:06] VITALS: BP 144/82; PULSE 77; RESP 16; TEMP 36.1; O2SAT 96; BMI 28.5
[2025-01-23 09:21] VITALS: BP 148/80
[2025-01-23 09:35] VITALS: BP 150/78
--- OUTSIDE RECORDS SUMMARY | 2025-01-23 09:41 | XMS_ITS | Patient Health Record ---
Author Organization [facility] Address [address] [place] [address] Care Team Providers Care Valve Tester Name Role Phone Jordan (RETIRED) Tee LONGORIA Primary Care Provide r Unavailable Ran Maldonado Unavailable [phone] Allergies No Known Allergies Results Component Value Reference Range Notes MAMMOGRAM DIGITAL BILATERAL SCREEN Reviewed date:03/11/2024 03:31:14 PM Interpretation:Normal Performing Lab: Notes/Report: Normal Pathology (Not yet reviewed by provider) Interpretation: Performing Lab:[facility], [address] [place] [id number] Notes/Report: Reason For Referral No Information Medications Medication [...] Problem Screening for malignant neoplasm of colon (757935371) Encounter for screening for malignant neoplasm of colon (Z12.11) Active confirmed Problem Constipation (71473590) Constipation (K59.00) Active confirmed Problem Diverticular disease of colon (795060231) Diverticulosis of large intestine without perforation or abscess without bleeding (K57.30) Active confirmed Problem Tubular adenoma of colon (631407654) Tubular adenoma of colon (D12.6) Active confirmed Problem [id number] Positive colorectal cancer screening using Cologuard test (R19.5) Active confirmed Vital Signs Blood pressure diastolic 80 mm Hg 03/11/2024 Height 62 in 03/11/2024 Blood pressure systolic 120 mm Hg 03/11/2024 Weight 154 lbs 03/11/2024 BMI 28.16 kg/m2 03/11/2024 Encounters Encounter Location Date Provider Diagnosis [facility] [address] [place], [place] [id number] 07/02/2024 Ran Maldonado Colon cancer screeni ng Z12.11 ; Colon polyps K63.5 ; Diverticulosis of large intestine without perforation or abscess without bleeding K57.30 and Other hemorrhoids K64.8 [facility] [address] [place] [address] 03/11/2024 Ran Maldonado Constipation K59.00 ; Encounter [...] Insured Coverage Start Date Coverage End Date [facility] [address] [place] [address] [phone] [id number] JANESSA MENDOZA Self - patient is the insured Medical (General) History Medical History History ICD Code Kidney stones Hypertension GERD Hyperlipidemia Denies AL,DM,CVA,Lung disease,renal dise ase + Cologuard test early 2022 Colonoscopy 10/2022 with the removal of 2 flat tubular adenomas from the cecum Surgical History Surgery Date(Month/Year) Biopsy of lesion on left leg 09/13/2022---going back to [facility] for followup Basal cell cancer on forehead Tubal ligation Cataracts 2013
== END 2025-01-23 09:40 | disposition home or self-care (01) ==
LOC: HO.HMCHD 08:54
PROVIDERS: PCP Internal Medicine; Visit Provider Physician Assistant
DX: I10 Essential (primary) hypertension (principal); E78.5 Hyperlipidemia, unspecified; F41.9 Anxiety disorder, unspecified; N32.81 Overactive bladder

== ENCOUNTER → 2025-01-23 08:53 | Outpatient (BNVA) | payer MEDICARE, SELFPAY | PROVIDERS: PCP Internal Medicine; Visit Provider Physician Assistant | DX: I10 Essential (primary) hypertension (principal); E78.5 Hyperlipidemia, unspecified; F41.9 Anxiety disorder, unspecified; N32.81 Overactive bladder; Z79.899 Other long term (current) drug therapy | CPT/HCPCS: 99212 ==

== ENCOUNTER 2025-04-21 07:44 | Outpatient (REF) | payer MEDICARE, SELFPAY ==
--- NOTE | ~2025-04-21 | MM_ITS ---
EXAMINATION: MM SCREENING DIGITAL BREAST TOMOSYNTHESIS, BILATERAL CLINICAL INFORMATION: Screening. Asymptomatic. COMPARISON: Mammography: Comparison is made with available priors TECHNIQUE: Digital breast mammography with tomosynthesis is performed in both the craniocaudal and mediolateral oblique views along with computer-aided detection (CAD). FINDINGS: There are scattered areas of fibroglandular density. There are no significant masses, abnormal calcifications, or other abnormalities. MM/MM tomosynthesis screening BI IMPRESSION: No mammographic evidence of malignancy. ASSESSMENT: BI-RADS Category 1: Negative RECOMMENDATION: Routine annual mammography screening. 1 year F/U This examination should not preclude the clinical evaluation of a suspicious palpable abnormality. This patient's information was entered into a reminder system with a target due date for their next mammogram. Electronically signed by: Shahla Pollard DO 04/21/2025 09:07 PM [facility]A
--- OUTSIDE RECORDS SUMMARY | 2025-04-21 08:07 | XMS_ITS | Clinical Summary ---
Author Organization [email or web address] Address [address] [place] [address] Care Team Providers Care Systems Engineer Name Role Phone Unavailable Primary Care Provider Unavailabl e Encounters Date Type Department Care Team Description 02/19/2025 10:05 AM EDT Immunization [facility] [address] [place] [address] Vale Funk RN from Last 3 Months Immunizations Immunization Administration Dates Next Due Influenza, High Dose Seasonal, Preservative Free 02/19/2025 Social History Tobacco Use Types Packs/Day Years Used Date Smoking Tobacco: Never Assessed Comments Unknown Sex and Gender Information Value Date Recorded Sex Assigned at Female 02/19/2025 2:07 PM EDT Legal Sex Female 2:05 PM EDT Gender Identity Female 02/19/2025 2:07 PM EDT Sexual Orientation Straight 02/19/2025 2: 07 PM EDT Plan of Treatment Health Maintenance Due Date Last Done Comments Depression Screening 1945 SDOH Screening 1945 Alcohol/Substance Use Screening 1958 Tobacco Screening 1958 Hepatitis C Screening 1964 DTaP/Tdap/Td Vaccines (1 - Tdap) 1965 Pneumococcal Vaccine: 50+ Ye ars (1 of 1 - PCV) 1996 Zoster Vaccines (1 of 2) 1996 RSV Patients and Pa tients Aged 60 years or older (1 - 1-dose 75+ series) 2021 COVID-19 Vaccine ( - 2024-2 6 season) 2025 Influenza Vaccine Completed 02/19/2025 HIB Vaccines Aged Out No longer eligi ble based on patient's age to complete this topic HPV Vaccines Aged Out No longer eligi ble based on patient's age to complete this topic Hepatitis A Vaccines Aged Out No long er eligible based on patient's age to complete this topic Hepatitis B Vaccines Aged Out No long er eligible based on patient's age to complete this topic IPV Vaccines Aged Out No longer eligi ble based on patient's age to complete this topic Meningococcal B Vaccine Aged Out No l onger eligible based on patient's age to complete this topic Meningococcal Vaccine Aged Out No maxine armond eligible based on patient's age to complete this topic RSV under 20 months Aged Out No longe r eligible based on patient's age to complete this topic Rotavirus Vaccines Aged Out No longer eligible based on patient's age to complete this topic Insurance [employer] PPO
== END 2025-04-21 07:45 | disposition home or self-care (01) ==
LOC: HO.MAMMO 07:44
PROVIDERS: PCP Student in an Organized Health Care Education/Training Program; Visit Provider Student in an Organized Health Care Education/Training Program
DX: Z12.31 Encounter for screening mammogram for malignant neoplasm of breast (principal)
CPT/HCPCS: 77063; 77067

== ENCOUNTER → 2025-04-21 08:00 | Outpatient (BNV) | payer MEDICARE, SELFPAY | PROVIDERS: PCP Student in an Organized Health Care Education/Training Program; Visit Provider Internal Medicine | DX: Z12.31 Encounter for screening mammogram for malignant neoplasm of breast (principal) | CPT/HCPCS: 77063; 77067 ==